=== PATIENT | female | born 1985 | race Hispanic/Latino ===

== ENCOUNTER 2019-02-19 18:44 | Emergency (ER) | payer SELFPAY ==
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
[2019-02-19] MEDS ORDERED: ACETAMINOPHEN 325 MG TABLET ONE (21:12)
== END 2019-02-19 21:20 | disposition home or self-care (01) ==
LOC: ER 18:44
DX: S29.012A Strain of muscle and tendon of back wall of thorax, initial encounter (principal); V49.40XA Driver injured in collision with unspecified motor vehicles in traffic accident, initial encounter; Y92.414 Local residential or business street as the place of occurrence of the external cause; M54.2 Cervicalgia; R07.9 Chest pain, unspecified
CPT/HCPCS: 71045; 99284

== ENCOUNTER 2024-03-22 07:54 | Emergency (ER) | payer SELFPAY ==
--- OUTSIDE RECORDS SUMMARY | 2024-03-22 08:01 | XMS REPORT | Continuity of Care Document ---
Author Name Unknown Address [address] [facility] [address] [place] [address] [facility] Address [address] [facility] [address] [place] [address] Care Team Providers Care Day Trader Name Role Phone KANDICE DAVALOS Attending Clinician UnavailKandice Reilly Attending Clinician + [phone] Visit, Kellifrieda Nurse Attending Clinician Unava ilable Doctor Unassigned, Merom Attending Clinician U navailable Timoteo Israel MD, Larissa Attending Clinician + LARISSA SMYTH Attending Clinician Unav ailable Ultrasound, Eveliahector Attending Clinician UnavailJuan Diego Lazo Attending Clinician [phone] Timoteo Israel MD, Larissa Admitting Clinician + LARISSA SMYTH Admitting Clinician Unav ailable Payers Payer Name Policy Type Policy Number Effective Date Expirati on Date Source [facility] MOM CHIP AMIE [id number] FPL [id number] 2019 00:00:00 Problems Condition Name Condition Details Condition Category Status Onset Date Resolution Date Last Treatment Date Treating Clinician Comments Source care and examinatio n immediatel y after delivery care and examinatio n immediatel y after delivery Disease Active 2-24 00:00: 00 [facility] 39 weeks gestation of 39 weeks gestation of Disease Active 2-02 00:00: 00 [facility] Herpes simplex type 2 infection affecting , antepartum , third trimester Herpes simplex type 2 infection affecting , antepartum , third trimester Disease Active 2018-1118 00:00: 00 [facility] 29 weeks gestation of 29 weeks gestation of Disease Active 2018-11 00:00: 00 [facility] Round ligament pain Round ligament pain Disease Active 2018-11 00:00: 00 [facility] Flu vaccine need Flu vaccine need Disease Active 2018-11 1-20 00:00: 00 [facility] Pedal edema Pedal edema Disease Active 9-11 00:00: 00 [facility] Obesity in Obesity in Disease Active 8-13 00:00: 00 [facility] Morbid obesity Morbid obesity Disease Active 8-13 00:00: 00 [facility] High risk , antepartum High risk , antepartum Disease Active 8-13 00:00: 00 [facility] Previous delivery affecting , antepartum Previous delivery affecting , antepartum Disease Active 8-13 00:00: 00 [facility] Multiparit y Multiparit y Disease Active 8-13 00:00: 00 [facility] GBS (group B Streptococ cus carrier), +RV culture, 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), +RV culture, currently Disease Active 6- 00:00: 00 [facility] Tdap given 04/27/2013 Tdap given 04/27/2013 Disease Active 6 00:00: 00 [facility] Allergies, Adverse Reactions, Alerts Allergy Name Allergy Type Status Severity Reaction(s) Onset Date Inactive Date Treating Clinician Comments Source NO KNOWN ALLERGIE S Drug Class Active [facility] Social History Social Habit Start Date Stop Date Quantity Comments Source ASSERTION 2019-04-03 00:00:00 [facility] Sex Assigned At [facility] Alcohol intake 2020-01-10 00:00:00 2020-01-10 00:00:00 [facility] Smoking Status Start Date Stop Date Source Never smoker [facility] Medications Ordered Medication Name Filled Medication Name Start Date Stop Date Current Medication? Ordering Clinician Indication Dosage Frequency Signature (SIG) Comments Components Source vit/iron fum/folic ac ( 1 + 1 ORAL) 12-20 12:29: 35 12-20 00:00 :00 No Take by mouth. [facility] ceFAZolin in dextrose (iso-os) (ANCEF) 2 gram/100 mL Piggyback 2 g 12-20 04:00: 00 12-20 20:13 :00 No 2000mg 2 g (2,000 mg), IV Piggyback, Q8H ABX, 3 doses, First dose on Fri12/19/19 at 2200, Last dose on 12/20/19 at 1400, 100 mL
Reas on for Anti-Infec tive: Surgical Prophylaxi s
Surgi rosalee Prophylaxi s: CABIN EQUIPMENT SUPERVISOR
Duration of therapy: within 24 hours of surgery [facility] vitamin w/FA tablet 12-20 00:00: 00 Yes [id number] 1{tbl} Take 1 tablet by mouth daily. [facility] docusate calcium 240 mg capsule 12-20 00:00: 00 Yes [id number] 240mg Take 1 capsule by mouth once daily as needed for Constipati on. [facility] ferrous sulfate 325 mg (65 mg iron) tablet 12-20 00:00: 00 Yes [id number] 325mg Take 1 tablet by mouth 2 (two) times daily. [facility] ibuprofen 600 mg tablet 12-20 00:00: 00 Yes [id number] 600mg Take 1 tablet by mouth every 6 (six) hours as needed (Pain). Take with food or milk. [facility] HYDROcodone -acetaminop hen 5-325 mg tablet 12-20 00:00: 00 12-28 05:59 :00 No [id number] 1{tbl} Take 1 tablet by mouth every 6 (six) hours as needed (Pain scale above 4) for up to 7 days. Do not exceed 3 grams of acetaminop hen in 24 hours. [facility] rho(D) immune globulin (RHOGAM) syringe 300 mcg 12-19 23:32: 10 Yes 300ug 300 mcg, Intramuscu lar, ONCE, For 1 dose, Conditiona l, Routine [facility] HYDROcodone -acetaminop hen (NORCO 5) 5-325 mg tablet 2 tablet 12-19 23:32: 05 Yes 2{tbl} 2 tablet, Oral, Q6HPRN, Starting 12/19/19 at 1732, Until Discontinu ed, Routine, Pain (scale 7-10), If uncontroll ed by Ibuprofen [facility] HYDROcodone -acetaminop hen (NORCO 5) 5-325 mg tablet 1 tablet 12-19 23:32: 05 Yes 1{tbl} 1 tablet, Oral, Q6HPRN, Starting 12/19/19 at 1732, Until Discontinu ed, Routine, Pain (scale 4-6), If uncontroll ed by Ibuprofen [facility] ibuprofen (IBU) tablet 600 mg 12-19 23:32: 05 Yes 600mg 600 mg, Oral, Q6HPRN, Starting 12/19/19 at 1732, Until Discontinu ed, Routine, Pain (scale 1-3) [facility] ondansetron (ZOFRAN (PF)) injection 4 mg 12-19 23:32: 05 Yes 4mg 4 mg, Slow IV Push, Q8HPRN, Starting 12/19/19 at 1732, Until Discontinu ed, Routine, Nausea and Vomiting (N/V) [facility] simethicone (GAS RELIEF (SIMETHICON E)) chewable tablet 160 mg 12-19 23:32: 05 Yes 160mg 160 mg, Oral, PC+HSPRN, Starting 12/19/19 at 1732, Until Discontinu ed, Routine, Gas [facility] magnesium hydroxide (MILK OF MAGNESIA) 400 mg/5 mL suspension 30 mL 12-19 23:32: 05 Yes 30mL 30 mL, Oral, QDAILYPRN, Starting 12/19/19 at 1732, Until Discontinu ed, Routine, Constipati on [facility] diphenhydrA MINE (BENADRYL) tablet 25 mg 12-19 23:32: 04 Yes 25mg 25 mg, Oral, Q6HPRN, Starting 12/19/19 at 1732, Until Discontinu ed, Routine, Sleep, Itching [facility] bisacodyL (DULCOLAX) suppository 10 mg 12-19 23:32: 04 Yes 10mg 10 mg, Rectal, QDAILYPRN, Starting 12/19/19 at 1732, Until Discontinu ed, Routine, Constipati on [facility] docusate calcium (SURFAK) capsule 240 mg 12-19 23:32: 04 Yes 240mg 240 mg, Oral, QDAILYPRN, Starting 12/19/19 at 1732, Until Discontinu ed, Routine, Constipati on [facility] ketorolac (TORADOL) injection 30 mg 12-19 21:33: 17 12-19 21:44 :00 No 30mg 30 mg, Slow IV Push, PRN, 1 dose, Starting 12/19/19 at 1533, Until 12/19/19 at 1544, Routine, Pain (scale 7-10)
F aculty member approving Restricted medication : NALINI LUBIN [facility] nalbuphine (NUBAIN) injection 5 mg 12-19 21:32: 43 Yes 5mg 5 mg, Intravenou s, PRN, 1 dose, Starting 12/19/19 at 1532, Until Discontinu ed, Routine, Itching [facility] naloxone (NARCAN) injection 0.4 mg 12-19 21:32: 43 12-22 00:14 :19 No .4mg 0.4 mg, Slow IV Push, PRN - SEE INSTRUCTZAKIYA NS, Starting 12/19/19 at 1532, Until Tu12/21/19 at 1814, Routine, Analgesia Recovery [facility] acetaminoph en (TYLENOL) tablet 650 mg 12-19 18:00: 00 12-19 18:07 :00 No 650mg 650 mg, Oral, ONCE, 1 dose, 2/2/20 at 1200, Routine [facility] lactated ringers IV infusion 1,000 mL 12-19 18:00: 00 12-19 23:32 :10 No 1000mL at 125 mL/hr, 1,000 mL, IV Infusion, CONTINUOUS , Starting 12/19/19 at 1200, Until Sun 220 at 1732, Routine [facility] lactated ringers IV infusion 500 mL 12-19 18:00: 00 12-19 18:06 :00 No 500mL at 999 mL/hr, 500 mL, IV Infusion, ONCE, 1 dose, 12/19/19 at 1200, Routine [facility] ceFAZolin in dextrose (iso-os) (ANCEF) 2 gram/100 mL Piggyback 2 g 12-19 17:50: 35 12-19 19:01 :00 No 2000mg 2 g (2,000 mg), IV Piggyback, O.R. HOLDING ONCE, 1 dose, Starting 12/19/19 at 1150, Until Sun 2 at 1301, 100 mL
Reas on for Anti-Infec tive: Surgical Prophylaxi s
Surgi rosalee Prophylaxi s: CABIN EQUIPMENT SUPERVISOR
Duration of therapy: within 24 hours of surgery [facility] sodium citrate-cit brayan acid (BICITRA) 500-334 mg/5 mL solution 30 mL 12-19 17:50: 35 12-19 19:02 :00 No 30mL 30 mL, Oral, PRE-PROCED URE ONCE, 1 dose, Starting 12/19/19 at 1150, Until Sun 220 at 1302, Routine, Surgery/Pr ocedure [facility] valACYclovi r (VALTREX) 500 mg tablet 12-08 00:00: 00 Yes [id number] 500mg Take 1 tablet by mouth daily. [facility] vit/iron fum/folic ac ( 1 + 1 ORAL) 2018-11 01:28: 36 Yes Take by mouth. [facility] vit/iron fum/folic ac ( 1 + 1 ORAL) 2019-0 8-13 18:25: 05 Yes Take by mouth. [facility] vit 33-iron-fol ic-dha (SELECT-OB + DHA) 29 mg iron-1 mg -250 mg combo pack 8-13 00:00: 00 12-20 00:00 :00 No [id number] 1{packe t} Take 1 Packet by mouth daily. [facility] Vital Signs Vital Name Observation Time Observation Value Comments S bayron Systolic blood pressure 2020-01-10 17:05:00 130 mm[Hg] [facility] Diastolic blood pressure 2020-01-10 17:05:00 80 mm[Hg] [facility] Heart rate 2020-01-10 17:05:00 79 /min [facility] Body temperature 2020-01-10 17:05:00 36.5 Yane [facility] Respiratory rate 2020-01-10 17:05:00 16 /min [facility] Body height 2020-01-10 17:05:00 162.6 cm [facility] Body weight 2020-01-10 17:05:00 134.038 kg [facility] BMI 2020-01-10 17:05:00 50.72 kg/m2 [facility] Systolic blood pressure 2019-12-27 15:15:00 132 mm[Hg] [facility] Diastolic blood pressure 2019-12-27 15:15:00 80 mm[Hg] [facility] Heart rate 2019-12-27 15:09:00 74 /min Unive [facility] Body temperature 2019-12-27 15:09:00 36.78 Yane [facility] Respiratory rate 2019-12-27 15:09:00 16 /min [facility] Body height 2019-12-27 15:09:00 162.6 cm [facility] Body weight 2019-12-27 15:09:00 137.525 kg [facility] BMI 2019-12-27 15:09:00 52.04 kg/m2 [facility] Systolic blood pressure 2019-12-24 17:10:00 123 mm[Hg] [facility] Diastolic blood pressure 2019-12-24 17:10:00 78 mm[Hg] [facility] Heart rate 2019-12-24 17:10:00 71 /min Unive [facility] Body temperature 2019-12-24 17:10:00 36.72 Yane [facility] Respiratory rate 2019-12-24 17:10:00 16 /min [facility] Body height 2019-12-24 17:10:[address] [facility] Body weight 2019-12-24 17:10:00 141.579 kg [facility] BMI 2019-12-24 17:10:00 53.58 kg/m2 [facility] Systolic blood pressure 2019-12-21 14:00:00 134 mm[Hg] [facility] Diastolic blood pressure 2019-12-21 14:00:00 68 mm[Hg] [facility] Heart rate 2019-12-21 14:00:00 79 /min Unive [facility] Body temperature 2019-12-21 14:00:00 36.33 Yane [facility] Respiratory rate 2019-12-21 14:00:00 18 /min [facility] Oxygen saturation in Arterial blood by Pulse oximetry 2019-12-21 14:00:00 97 /min [facility] Body height 2019-12-19 17:37:00 157.5 cm [facility] Body weight 2019-12-19 17:37:00 138.12 kg [facility] BMI 2019-12-19 17:37:00 55.69 kg/m2 [facility] Systolic blood pressure 2019-12-15 16:07:00 138 mm[Hg] [facility] Diastolic blood pressure 2019-12-15 16:07:00 74 mm[Hg] [facility] Heart rate 2019-12-15 16:07:00 97 /min Unive [facility] Body temperature 2019-12-15 16:07:00 36.11 Yane [facility] Respiratory rate 2019-12-15 16:07:00 16 /min [facility] Body height 2019-12-15 16:07:00 157.5 cm [facility] Body weight 2019-12-15 16:07:[address] [facility] BMI 2019-12-15 16:07:00 55.97 kg/m2 [facility] Systolic blood pressure 2019-12-08 15:34:00 110 mm[Hg] [facility] Diastolic blood pressure 2019-12-08 15:34:00 62 mm[Hg] [facility] Heart rate 2019-12-08 15:02:00 84 /min Unive [facility] Body temperature 2019-12-08 15:02:00 36.33 Yane [facility] Respiratory rate 2019-12-08 15:02:00 16 /min [facility] Body height 2019-12-08 15:02:00 157.5 cm [facility] Body weight 2019-12-08 15:02:[address] [facility] BMI 2019-12-08 15:02:00 56.88 kg/m2 [facility] Body weight 2019-12-01 16:10:[address] [facility] BMI 2019-12-01 16:10:00 56.17 kg/m2 [facility] Systolic blood pressure 2019-12-01 16:10:00 115 mm[Hg] [facility] Diastolic blood pressure 2019-12-01 16:10:00 70 mm[Hg] [facility] Heart rate 2019-12-01 16:10:00 78 [facility] Body temperature 2019-12-01 16:10:00 36.67 Yane [facility] Respiratory rate 2019-12-01 16:10:00 16 /min [facility] Body height 2019-12-01 16:10:[address] [facility] Systolic blood pressure 2019-07-28 15:15:00 113 mm[Hg] [facility] Diastolic blood pressure 2019-07-28 15:15:00 69 mm[Hg] [facility] Heart rate 2019-07-28 15:15:00 79 /min Unive [facility] Body temperature 2019-07-28 15:15:00 37.06 Yane [facility] Respiratory rate 2019-07-28 15:15:00 18 /min [facility] Body height 2019-07-28 15:15:00 157.5 cm [facility] Body weight 2019-07-28 15:15:00 137.922 kg [facility] BMI 2019-07-28 15:15:00 55.61 kg/m2 [facility] Systolic blood pressure 2019-06-29 18:21:00 126 mm[Hg] [facility] Diastolic blood pressure 2019-06-29 18:21:00 77 mm[Hg] [facility] Heart rate 2019-06-29 18:21:00 96 /min [facility] Body temperature 2019-06-29 18:21:00 36.72 Yane [facility] Respiratory rate 2019-06-29 18:21:00 16 /min [facility] Body height 2019-06-29 18:21:00 157.5 cm [facility] Body weight 2019-06-29 18:21:00 136.589 kg [facility] BMI 2019-06-29 18:21:00 55.08 kg/m2 [facility] Procedures Procedure Date / Time Performed Performing Clinician Source PATIENT CORRESPONDENCE (LETTERS, USPS DOCUMENTATION) 2019-12-24 06:01:00 Doctor Unassigned, Merom [facility] CBC WITH DIFFERENTIAL 2019-12-20 08:20:00 Tamara Jameson [facility] VENOUS CORD GAS 2019-12-19 19:51:[facility] 2019-12-19 18:54:00 Timoteo larios [facility] TUBAL LIGATION 2019-12-19 18:54:00 Timoteo fernandez [facility] CBC WITH DIFFERENTIAL 2019-12-19 18:02:00 Tamara Jameson [facility] HEPATITIS B SURFACE ANTIGEN 2019-12-19 18:02:00 G[facility] GALV ONLY - SYPHILIS IGG/IGM 2019-12-19 18:02:00 Abby Jameson [facility] HB ABO GROUPING 2019-12-19 17:55:00 Abby Jameson [facility] RHO (D) IMMUNE GLOBULIN 2019-12-19 17:55:00 Yolanda Jameson [facility] POCT URINALYSIS 2019-12-15 16:08:00 Kandice Davalos [facility] POCT URINALYSIS 2019-12-08 15:13:00 Kandice Davalos [facility] POCT TEST 2019-12-01 16:36:00 Abena Davalos [facility] POCT URINALYSIS W/O SPECIFIC GRAVITY 2019-12-01 16:15:00 Kandice Davalos [facility] IMMTRAC2 CONSENT 2019-09-22 06:01:00 Doctor Melania signed, Merom [facility] POCT URINALYSIS 2019-07-28 15:19:00 Kandice Davalos [facility] POCT TEST 2019-06-29 18:26:00 Abena Davalos [facility] POCT URINALYSIS W/O SPECIFIC GRAVITY 2019-06-29 18:26:00 Kandice Davalos [facility] REPORT OF 2019-06-29 05:01:00 Doctor Heidi sanders, Merom [facility] Encounters Start Date/Time End Date/Time Encounter Type Admission Type Attending [facility] Facility Care Department Encounter ID Source 2023-09-01 14:48:01 2023-09-01 14:48:[address] [facility] [id number] Charles Reddy 2022-08-26 10:14:47 2022-08-26 10:14:47 Outpatient SFA [facility] [id number] Charles Reddy 2020-02-02 10:15:00 2020-02-02 10:15:00 Outpatient R KANDICE DAVALOS [facility] [id number] [facility] 2020-01-10 10:39:22 2020-01-10 11:25:50 Routine Visit Kandice Davalos [facility] CABIN EQUIPMENT SUPERVISOR [facility] [id number] [id number] [id number] [id number] [facility] 2020-01-10 10:45:00 2020-01-10 10:45:00 Outpatient R KANDICE DAVALOS [facility] [id number] [facility] 2019-12-27 08:56:58 2019-12-27 09:11:58 [facility] SUPERVISOR [facility] [id number] 350.1.13.10 4.2.7.2.686 [id number] [facility] 2019-12-24 10:44:14 2019-12-24 11:21:11 Nurse Visit Visit, [facility] [id number] 350.1.13.10 4.2.7.2.686 [id number] [facility] 2019-12-24 00:00:00 2019-12-24 00:00:00 Orders Only Doctor Unassigned, Merom [facility] [id number] 350.1.13.10 4.2.7.2.686 [id number] [facility] 2019-12-19 11:10:00 2019-12-21 10:28:00 Hospital Encounter Larissa Mcgee [facility] [id number] 350.1.13.10 4.2.7.2.686 [id number] [facility] 2019-12-19 11:10:00 2019-12-21 10:28:00 Inpatient P LARISSA MCGEE [facility] [id number] [facility] 2019-12-15 10:02:24 2019-12-15 10:28:30 Routine Visit Kandice Davalos [facility] CABIN EQUIPMENT SUPERVISOR [facility] [id number] 350.1.13.10 4.2.7.2.686 [id number] [facility] 2019-12-08 08:31:15 2019-12-08 09:36:38 Routine Visit Kandice Davalos [facility] CABIN EQUIPMENT SUPERVISOR [facility] CHILD [facility] [id number] 350.1.13.10 4.2.7.2.686 [id number] [facility] 2019-12-01 09:52:57 2019-12-01 10:36:43 Routine Visit Kandice Davalos [facility] CABIN EQUIPMENT SUPERVISOR [facility] CHILD [facility] [id number] 350.1.13.10 4.2.7.2.686 [id number] [facility] 2019-07-28 10:08:18 2019-07-28 10:47:38 Routine Visit Kandice Davalos [facility] CABIN EQUIPMENT SUPERVISOR [facility] CHILD [facility] [id number] 350.1.13.10 4.2.7.2.686 [id number] [facility] 2019-07-01 09:12:43 2019-07-01 09:47:52 Psychiatric Assistant Visit Ultrasound, Juan Diego Wiley [facility] CABIN EQUIPMENT SUPERVISOR [facility] [id number] 350.1.13.10 4.2.7.2.686 [id number] [facility] 2019-07-01 00:00:00 2019-07-01 00:00:00 Abstract Kandice Davalos [facility] CABIN EQUIPMENT SUPERVISOR [facility] MATERNAL & CHILD [facility] [id number] 350.1.13.10 4.2.7.2.686 [id number] [facility] 2019-06-29 13:07:33 2019-06-29 14:12:08 Initial Visit Veronica Davalosa R [facility] CABIN EQUIPMENT SUPERVISOR [facility] [id number] 350.1.13.10 4.2.7.2.686 [id number] [facility] 2019-06-29 00:00:00 2019-06-29 00:00:00 Orders Only Doctor Unassigned, Merom [facility] [id number] 350.1.13.10 4.2.7.2.686 [id number] [facility] Results Test Description Test Time Test Comments Results Result Co mments Source VAGINAL PATHOGENS DNA [id number] 15:37:00* Test Item Value Reference Range Interpretation Comme nts CHARLIE SPECIES (test code = 28170) NEGATIVE NEGATIVE G. VAGINALIS (test code = 88907) NEGATIVE NEGATIVE T. VAGINALIS (test code = 44585) NEGATIVE NEGATIVE UNLESS OTHERWISE INDICATED, ALL TESTING PERFORMED ATCLINICAL PATHOLOGY [employer] [address] [place] [address] MEAT BONER: WILLIAM OSBORNE M.D. CLIA NUMBER [id number] [facility] [place]. [id number] GALV ONLY - SYPHILIS [id number] 14:17:00* Test Item Value Reference Range Interpretation Comme nts Syphilis IgG/IgM (test code = 75065-4) Non-reactive Non-reactive KEHINDE (test code = KEHINDE) Non-reactive - No serologic evidence of T. pallidum infection. Cannot exclude incubating or early syphilis. Submit a second specimen in 2-4 weeks if syphilis is clinically suspected. Equivocal - Further testing to follow. Reactive - Further testing to follow. Lab Interpretation (test code = 78765-9) [facility] [id number] 09:06:00* Test Item Value Reference Range Interpretation Comme nts WBC (test code = 6690-2) See_Comment [Automated messa ge] The system which generated this result transmitted reference range: 4.30 - 11.10 10*3/?L. The reference range was not used to interpret this result as normal/abnormal. RBC (test code = 789-8) See_Comment L [Automated messa ge] The system which generated this result transmitted reference range: 3.93 - 5.25 10*6/?L. The reference range was not used to interpret this result as normal/abnormal. HGB (test code = 718-7) 10.3 g/dL 11.6-15 L HCT (test code = 4544-3) 31.8 % 35.7-45.2 L MCV (test code = 787-2) 85.9 fL 80.6-95.5 MCH (test code = 785-6) 27.8 pg 25.9-32.8 MCHC (test code = 786-4) 32.4 g/dL 31.6-35.1 RDW-SD (test code = 78740-5) 49.6 fL 39-49.9 RDW-CV (test code = 788-0) 16.0 % 12-15.5 H PLT (test code = 777-3) See_Comment L [Automated messa ge] The system which generated this result transmitted reference range: 166 - 358 10*3/?L. The reference range was not used to interpret this result as normal/abnormal. MPV (test code = 13009-7) 11.2 fL 9.5-12.9 NRBC/100 WBC (test code = 1017406867) See_Comment [Automated [employer] ssage] The system which generated this result transmitted reference range: 0.0 - 10.0 /100 WBCs. The reference range was not used to interpret this result as normal/abnormal. NRBC x10^3 (test code = 8749009545) <0.01 See_Comment [Automated messa ge] The system which generated this result transmitted reference range: 10*3/?L. The reference range was not used to interpret this result as normal/abnormal. GRAN MAT (NEUT) % (test code = 770-8) 78.8 % IMM GRAN % (test code = 9745467925) 0.40 % LYMPH % (test code = 736-9) 13.8 % MONO % (test code = 5905-5) 6.4 % EOS % (test code = 713-8) 0.5 % BASO % (test code = 706-2) 0.1 % GRAN MAT x10^3(ANC) (test code = 1534529316) 7.22 10*3/uL 1.88-7.09 H IMM GRAN x10^3 (test code = 2979668205) 0.04 10*3/uL 0-0.06 LYMPH x10^3 (test code = 731-0) 1.27 10*3/uL 1.32-3.29 L MONO x10^3 (test code = 742-7) 0.59 10*3/uL 0.33-0.92 EOS x10^3 (test code = 711-2) 0.05 10*3/uL 0.03-0.39 BASO x10^3 (test code = 704-7) <0.03 0.01-0.07 Lab Interpretation (test code = 76254-4) [facility]normal [facility] IMMUNE [id number] 23:43:56* Test Item Value Reference Range Interpretation Comme nts RHIG CANDIDATE? (test code = 5055) No- see comment Patient is not a candidate for RhIg- Patient is Rh Positive.Performed at [facility] Laboratory Services - [facility] Blood [address] [id number] Free: [phone] No. [id number] [facility] HospitalArterial Cord [id number] 20:01:00* Test Item Value Reference Range Interpretation Comme nts BASE EXCESS, CORD (test code = 6111230614) mEq/L AC PH, CORD (BEAKER) (test code = 2619369035) 7.18-7.38 PC02, CORD (test code = 0913109085) See_Comment [Automated messa ge] The system which generated this result transmitted reference range: 32 - 66 mmHg. The reference range was not used to interpret this result as normal/abnormal. PO2, CORD (test code = 3086525706) See_Comment [Automated messa ge] The system which generated this result transmitted reference range: 10 - 30 mmHg. The reference range was not used to interpret this result as normal/abnormal. BICARBONATE, CORD (test code = 9830806363) See_Comment [Automated messa ge] The system which generated this result transmitted reference range: 17 - 27 mEq/L. The reference range was not used to interpret this result as normal/abnormal. [facility] [id number] 19:58:00* Test Item Value Reference Range Interpretation Comme nts VENOUS BASE EXCESS, CORD (test code = 7584356365) mEq/L VENOUS PH, CORD (test code = 9875499711) 7.25-7.45 L VENOUS PC02, CORD (test code = 6111760412) See_Comment H [Automated me ssage] The system which generated this result transmitted reference range: 27 - 49 mmHg. The reference range was not used to interpret this result as normal/abnormal. VENOUS PO2, CORD (test code = 4882169381) See_Comment L [Automated me ssage] The system which generated this result transmitted reference range: 17 - 41 mmHg. The reference range was not used to interpret this result as normal/abnormal. VENOUS BICARBONATE, CORD (test code = 2810620526) See_Comment [Automa adam message] The system which generated this result transmitted reference range: 12 - 29 mEq/L. The reference range was not used to interpret this result as normal/abnormal. Lab Interpretation (test code = 68902-5) Abnormal [facility] HospitalHepatitis B Surface [id number] 19:56:00 * Test Item Value Reference Range Interpretation Comme nts HBsAg Semi-Quantitative (fadi t code = 5195-3) Negative Negative [facility] HospitalType and Screen - ONCE [id number] 18:44:46* Test Item Value Reference Range Interpretation Comme nts ABO & RH (test code = 20) O POSITIVE Performed at [facility] Laboratory Services - [facility] Blood [address] Free: [phone] No. [id number] IAT (test code = 1185) Negative Performed at [facility] Laboratory Services - [facility] Blood [address] Free: [phone] No. [id number] [facility] HospitalCBC WITH [id number] 18:15:00* Test Item Value Reference Range Interpretation Comme nts WBC (test code = 6690-2) See_Comment H [Automated message] The system which generated this result transmitted reference range: 4.30 - 11.10 10*3/?L. The reference range was not used to interpret this result as normal/abnormal. RBC (test code = 789-8) See_Comment [Automated message] The system which generated this result transmitted reference range: 3.93 - 5.25 10*6/?L. The reference range was not used to interpret this result as normal/abnormal. HGB (test code = 718-7) 13.0 g/dL 11.6-15 HCT (test code = 4544-3) 40.0 % 35.7-45.2 MCV (test code = 787-2) 84.6 fL 80.6-95.5 MCH (test code = 785-6) 27.5 pg 25.9-32.8 MCHC (test code = 786-4) 32.5 g/dL 31.6-35.1 RDW-SD (test code = 69836-8) 47.6 fL 39-49.9 RDW-CV (test code = 788-0) 15.6 % 12-15.5 H PLT (test code = 777-3) See_Comment [Automated message] The system which generated this result transmitted reference range: 166 - 358 10*3/?L. The reference range was not used to interpret this result as normal/abnormal. MPV (test code = 07383-8) 11.6 fL 9.5-12.9 NRBC/100 WBC (test code = 1731330183) See_Comment [Automated message] The system which generated this result transmitted reference range: 0.0 - 10.0 /100 WBCs. The reference range was not used to interpret this result as normal/abnormal. NRBC x10^3 (test code = 7516781579) <0.01 See_Comment [Automated message] The system which generated this result transmitted reference range: 10*3/?L. The reference range was not used to interpret this result as normal/abnormal. GRAN MAT (NEUT) % (test code = 770-8) 83.7 % IMM GRAN % (test code = 4784100697) 0.30 % LYMPH % (test code = 736-9) 11.2 % MONO % (test code = 5905-5) 4.4 % EOS % (test code = 713-8) 0.2 % BASO % (test code = 706-2) 0.2 % GRAN MAT x10^3(ANC) (test code = 5430844820) 10.23 10*3/uL 1.88-7.09 H IMM GRAN x10^3 (test code = 9837182965) 0.04 10*3/uL 0-0.06 LYMPH x10^3 (test code = 731-0) 1.37 10*3/uL 1.32-3.29 MONO x10^3 (test code = 742-7) 0.54 10*3/uL 0.33-0.92 EOS x10^3 (test code = 711-2) 0.03 10*3/uL 0.03-0.39 BASO x10^3 (test code = 704-7) 0.03 10*3/uL 0.01-0.07 Lab Interpretation (test code = 85832-2) Abnormal [facility] URINALYSIS W SPECIFIC [id number] 16:11:00* Test Item Value Reference Range Interpretation Comme nts POCT U SP GRAV (test code = 3255) . 1.005-1.025 POCT PH U (test code = 3254) . 5-8 POCT U LEUK EST (test code = 3263) . Negative - Negative POCT U NIT (test code = 3262) . Negative - Negati ve POCT U PROT (test code = 3259) 1+ Negative - Negat saba POCT U GLU (test code = 3256) neg Negative - Negati ve POCT U KETONE (test code = 3258) . Negative - Neg ative POCT U UROBILI (test code = 3260) . 0.2-1 POCT U BILI (test code = 3261) . Negative - Negat saba POCT U BLD (test code = 3257) . Negative - Negati ve POCT U COLOR (test code = 3266) POCT U APPEAR (test code = 3267) Lab Interpretation (test cod e = 00927-8) Abnormal [facility] URINALYSIS W SPECIFIC [id number] 16:11:00* Test Item Value Reference Range Interpretation Comme nts POCT U SP GRAV (test code = 3255) . 1.005-1.025 POCT PH U (test code = 3254) . 5-8 POCT U LEUK EST (test code = 3263) . Negative - Negative POCT U NIT (test code = 3262) . Negative - Negati ve POCT U PROT (test code = 3259) 1+ Negative - Negat saba POCT U GLU (test code = 3256) neg Negative - Negati ve POCT U KETONE (test code = 3258) . Negative - Neg ative POCT U UROBILI (test code = 3260) . 0.2-1 POCT U BILI (test code = 3261) . Negative - Negat saba POCT U BLD (test code = 3257) . Negative - Negati ve POCT U COLOR (test code = 3266) POCT U APPEAR (test code = 3267) Lab Interpretation (test cod e = 63469-8) Abnormal [facility] URINALYSIS W SPECIFIC [id number] 15:13:00* Test Item Value Reference Range Interpretation Comme nts POCT U SP GRAV (test code = 3255) . 1.005-1.025 POCT PH U (test code = 3254) . 5-8 POCT U LEUK EST (test code = 3263) . Negative - Negative POCT U NIT (test code = 3262) . Negative - Negati ve POCT U PROT (test code = 3259) trace Negative - Negat saba POCT U GLU (test code = 3256) negative Negative - Negati ve POCT U KETONE (test code = 3258) . Negative - Neg ative POCT U UROBILI (test code = 3260) . 0.2-1 POCT U BILI (test code = 3261) . Negative - Negat saba POCT U BLD (test code = 3257) . Negative - Negati ve POCT U COLOR (test code = 3266) POCT U APPEAR (test code = 3267) [facility] [id number] 16:37:00* Test Item Value Reference Range Interpretation Comme nts POCT PREG (test code = 1605) Positive error On board controls acceptable with C Line (test code = 357) Yes POCT PREG LOT # (test code = 7854) POCT PREG TEST DATE ( test code = 3576) [facility] [id number] 16:37:00* Test Item Value Reference Range Interpretation Comme nts POCT PREG (test code = 1605) Positive error On board controls acceptable with C Line (test code = 3574) Yes POCT PREG LOT # (test code = 3575) POCT PREG TEST DATE ( test code = 3576) [facility] URINALYSIS W/O SPECIFIC [id number] 16:15:00* Test Item Value Reference Range Interpretation Comme nts POCT PH U (test code = 3254) 6 mg/dl 5-8 POCT U LEUK EST (test code = 3263) trace Negative - Negative POCT U NIT (test code = 3262) neg Negative - Negati ve POCT U PROT (test code = 3259) trace Negative - Negat saba POCT U GLU (test code = 3256) neg Negative - Negati ve POCT U KETONE (test code = 3258) + Negative - Neg ative POCT U BLD (test code = 3257) neg Negative - Negati ve Lab Interpretation (test cod e = 42993-7) Abnormal [facility] URINALYSIS W/O SPECIFIC [id number] 16:15:00* Test Item Value Reference Range Interpretation Comme nts POCT PH U (test code = 3254) 6 mg/dl 5-8 POCT U LEUK EST (test code = 3263) trace Negative - Negative POCT U NIT (test code = 3262) neg Negative - Negati ve POCT U PROT (test code = 3259) trace Negative - Negat saba POCT U GLU (test code = 3256) neg Negative - Negati ve POCT U KETONE (test code = 3258) + Negative - Neg ative POCT U BLD (test code = 3257) neg Negative - Negati ve Lab Interpretation (test cod e = 60678-2) Abnormal [facility] URINALYSIS W SPECIFIC [id number] 15:19:00* Test Item Value Reference Range Interpretation Comme nts POCT U SP GRAV (test code = 3255) . 1.005-1.025 POCT PH U (test code = 3254) . 5-8 POCT U LEUK EST (test code = 3263) . Negative - N egative POCT U NIT (test code = 3262) . Negative - Negati ve POCT U PROT (test code = 3259) NEG Negative - Negat saba POCT U GLU (test code = 3256) NEG Negative - Negati ve POCT U KETONE (test code = 3258) . Negative - Neg ative POCT U UROBILI (test code = 3260) . 0.2-1 POCT U BILI (test code = 3261) . Negative - Negat saba POCT U BLD (test code = 3257) . Negative - Negati ve POCT U COLOR (test code = 3266) POCT U APPEAR (test code = 3267) [facility] HospitalPOID [id number] 18:26:00* Test Item Value Reference Range Interpretation Comme nts POCT PREG (test code = 1605) Positive On board controls acceptable with C Line (test code = 3574) Yes POCT PREG LOT # (test code = 3575) POCT PREG TEST DATE ( test code = 3576) [facility] URINALYSIS W/O SPECIFIC [id number] 18:26:00* Test Item Value Reference Range Interpretation Comme nts POCT PH U (test code = 3254) 5 mg/dl 5-8 POCT U LEUK EST (test code = 3263) Neg Negative - Negative POCT U NIT (test code = 3262) Neg Negative - Negati ve POCT U PROT (test code = 3259) Trace Negative - Negat saba POCT U GLU (test code = 3256) Neg Negative - Negati ve POCT U KETONE (test code = 3258) None Negative - Neg ative POCT U BLD (test code = 3257) Neg Negative - Negati ve [facility]
[2024-03-22] MEDS ORDERED: MORPHINE 4 MG/ML SYR ONE (08:30)
[2024-03-22] MEDS ORDERED: ONDANSETRON 4 MG/2 ML VIAL ONE (08:30)
[2024-03-22] MEDS ORDERED: NA CHLORIDE 0.9% 1,000 ML ONE (08:30)
[2024-03-22 08:37] LABS: Absolute Eosinophils 0.1 K/uL (0-0.5); Absolute Lymphocytes (CBC) 1.7 K/uL (0.7-4.9); Absolute Monocytes 0.6 K/uL (0.1-1.3); Absolute Neutrophil 5.4 K/uL (1.8-8.0); Basophils % 0.6 % (0-1.3); Eosinophils % 1.5 % (0-4.4); Hematocrit 36.1 % (36.0-45.0); Hemoglobin 11.8 g/dL (12.0-15.0); Lymphocytes % 21.9 % (15.3-44.8); MCH 27.2 pg (27.0-35.0); MCHC 32.8 g/dL (32.0-36.0); MPV 8.1 fL (7.6-11.3); Monocytes % 7.1 % (3.3-12.3); Neutrophils % 68.9 % (41.7-73.7); Platelets 262 thou/uL (152-406); RBC Red Blood Cell Count 4.34 M/uL (3.86-4.86); Red Cell Distribution Width 15.1 % (12.1-15.2)
[2024-03-22 09:06] LABS: Albumin/Globulin Ratio 0.8 (1.1-1.8); Anion Gap 8.1 mEq/L (5.0-15.0); Bilirubin Total 0.5 mg/dL (0.2-1.0); Potassium 4.1 mEq/L (3.5-5.1)
--- NOTE | 2024-03-22 09:19 | RAD REPORT ---
EXAM DESCRIPTION: CT - Abdomen Pelvis W Contrast - 03/22/2024 8:57 am CLINICAL HISTORY: Abdominal pain COMPARISON: none. TECHNIQUE: Computed axial tomography of the abdomen pelvis was obtained. 100 cc Isovue-300 was admin istered intravenously. Oral contrast was not requested which limits evaluation of bowel and appendix All CT scans are performed using dose optimization technique as appropriate and may include automated exposure control or mA/KV adjustment according to patient size. FINDINGS: The liver, spleen, pancreas, adrenal and kidneys appear unremarkable. There is no evidence of diverticulitis. A small umbilical hernia Normal appendix. No adnexal mass seen IMPRESSION: No acute abnormality is displayed.
[2024-03-22 09:30] LABS: Specific Gravity > 1.030 (1.005-1.030)
[2024-03-22 09:41] LABS: Specific Gravity > 1.030 (1.005-1.030); Urine Bacteria None Seen /HPF (<20); Urine Bilirubin NEGATIVE (Negative); Urine Blood Negative (Negative); Urine Clarity Turbid (Clear); Urine Color Light-Yellow (Yellow); Urine Culture Reflex Order NOT NEEDED; Urine Glucose NEGATIVE (Negative); Urine Ketones NEGATIVE (Negative); Urine Microscopic Reflex YN ORDER UMIC; Urine Mucus Slight /HPF (None Seen); Urine Nitrite NEGATIVE (Negative); Urine Protein TRACE (Negative); Urine RBC <5 /HPF (None Seen); Urine Urobilinogen Normal (Normal); Urine WBC <5 /HPF (<5); Urine pH 5.5 (5.0-7.0)
--- NOTE | 2024-03-22 09:45 | EDPHYS ---
Physician Documentation [facility] Name: Dorene Esquivel Age: 38 yrs Sex: Female : 1985 Arrival Date: 03/22/2024 Time: 07:54 Bed 8 Private MD: ED Physician Tavo Jack HPI: 03/22 08:11 This 38 yrs old Female presents to ER via Unassigned with complaints of sb4 Abdominal Pain. 08:11 The patient presents with abdominal pain in the lower abdomen. Onset: The sb4 symptoms/episode began/occurred this morning. The symptoms do not radiate. Associated signs and symptoms: none. The symptoms are described as burning. Modifying factors: The symptoms are alleviated by nothing, the symptoms are aggravated by nothing. The patient has not experienced similar symptoms in the past. The patient has not recently seen a physician. 08:14 diffuse lower abdominal pain beginning this morning, feels like a burning sensation. sb4 denies any n/v/d/f. took aleve without relief. Historical: - Allergies: 08:11 No Known Allergies; aa5 - PMHx: 08:11 None; aa5 - PSHx: 08:11 section; tubal ligation; aa5 - Immunization history:: Adult Immunizations up to date. - Infectious Disease History:: Denies. - Social history:: Smoking status: Patient denies any tobacco usage or history of. ROS: 08:11 Constitutional: Negative for fever, chills, and weight loss, sb4 08:11 Abdomen/GI: Positive for abdominal pain, 08:11 All other systems are negative, Exam: 08:11 Head/Face: Normocephalic, atraumatic. Eyes: Extra-ocular motions intact. Periorbital sb4 areas with no swelling, redness, or edema. ENT: Mucous membranes moist. Cardiovascular: Regular rate and rhythm with a normal S1 and S2. Respiratory: Lungs have equal breath sounds bilaterally, clear to auscultation and percussion. No rales, rhonchi or wheezes noted. No increased work of breathing, no retractions or nasal flaring. Abdomen/GI: Soft, non-tender, no distension. Skin: Warm, dry with normal turgor. Normal color with no rashes, no lesions, and no evidence of cellulitis. MS/ Extremity: Pulses equal, no cyanosis. Neurovascular intact. Full, normal range of motion. 08:11 Constitutional: The patient appears alert, awake, obese, uncomfortable, Vital Signs: 08:11 BP 122 / 90; Pulse 64; Resp 18 S; Temp 97.8(TE); Pulse Ox 100% on R/A; aa5 09:40 BP 125 / 88; Pulse 68; Resp 18; Pulse Ox 99% on R/A; rs5 MDM: 08:06 Patient medically screened. sb4 09:44 Data reviewed: vital signs, nurses notes, lab test result(s), radiologic studies, and sb4 as a result, I will discharge patient. Counseling: I had a detailed discussion with the patient and/or guardian regarding the historical points, exam findings, and any diagnostic results supporting the discharge/admit diagnosis, lab results, radiology results, to return to the emergency department if symptoms worsen or persist or if there are any questions or concerns that arise at home. Special discussion: Based on the patient's Hx, exam, and Dx evaluation, there is no indication for emergent surgery or inpatient Tx. It is understood by the patient/guardian that if the Sx's persist or worsen they need to return immediately for re-evaluation. 03/22 08:11 Order name: CBC with Diff; Complete Time: 08:39 sb4 03/22 08:11 Order name: CMP; Complete Time: 09:11 sb4 03/22 08:11 Order name: Lipase; Complete Time: 09:11 sb4 03/22 08:11 Order name: Test, Urine; Complete Time: 09:32 sb4 03/22 08:11 Order name: Urinalysis w/ reflexes; Complete Time: 09:41 sb4 03/22 08:11 Order name: CT Abd/Pelvis - IV Contrast Only; Complete Time: 09:21 sb4 03/22 08:11 Order name: IV Saline Lock; Complete Time: 08:25 sb4 03/22 08:11 Order name: Labs collected and sent; Complete Time: 08:25 sb4 Administered Medications: 08:30 Drug: NS 0.9% IV 1000 ml IV at 1 bolus Per protocol; 1000 mL bolus Route: IV; Rate: 1 rs5 bolus; Site: left antecubital; 08:45 Follow up: Response: No adverse reaction rs5 09:33 Follow up: IV Status: Completed infusion rs5 08:30 Drug: Ondansetron IVP 4 mg IVP once; over 2 minutes Route: IVP; Site: left antecubital; rs5 08:45 Follow up: Response: No adverse reaction rs5 08:30 Drug: morphine IVP or IV 4 mg IVP once over 4 mins Route: IVP; Infused Over: 4 mins; rs5 Site: left antecubital; 08:45 Follow up: Response: No adverse reaction rs5 Disposition Summary: 03/22/24 09:45 Discharge Ordered Notes: Location: Home sb4 Problem: new sb4 Symptoms: have improved sb4 Condition: Stable sb4 Diagnosis - Lower abdominal pain, unspecified sb4 Followup: sb4 - With: Emergency Department - When: As needed - Reason: Trouble breathing, Worsening of condition Discharge Instructions: - Discharge Summary Sheet sb4 - Abdominal Pain, Adult, Kafe-[id number]-Vyyy sb4 Forms: - Patient Portal Instructions sb4 - Leadership Thank You Letter sb4 Prescriptions: - dicyclomine 20 mg Oral tablet - take 1 tablet ORAL route 3 times per day As needed; 20 tablet; Refills: 0, sb4 Product Selection Permitted Signatures: Dispatcher [employer] EDJacinta Dailey, RN RN aa5 Melissa Sherman PAGertrudis PAGertrudis sb4 Holden Torres RN RN rs5 Corrections: (The following items were deleted from the chart) 08:11 08:11 CBC+H.LAB.BRZ ordered. EDMS EDMS 08:11 08:11 COMPREHENSIVE METABOLIC PANEL+C.LAB.BRZ ordered. EDMS EDMS 08:11 08:11 LIPASE+C.LAB.BRZ ordered. EDMS EDMS 08:11 08:11 Test, Urine+UC.LAB.BRZ ordered. EDMS EDMS 08:11 08:11 Urinalysis+U.LAB.BRZ ordered. EDMS EDMS
--- NOTE | 2024-03-22 09:45 | ER ---
Nurse's Notes [facility] Name: Dorene Esquivel Age: 38 yrs Sex: Female : 1985 Arrival Date: 03/22/2024 Time: 07:54 Bed 8 Private MD: Diagnosis: Lower abdominal pain, unspecified Presentation: 03/22 08:11 Chief complaint: Patient states: lower abdominal pain that began this morning, aa5 described as burning pain. Denies nausea/vomiting. Coronavirus screen: At this time, the client does not indicate any symptoms associated with coronavirus-19. Ebola Screen: Patient denies travel to an Ebola-affected area in the 21 days before illness onset. Initial Sepsis Screen: Does the patient meet any 2 criteria? No. Patient's initial sepsis screen is negative. Does the patient have a suspected source of infection? No. Patient's initial sepsis screen is negative. Risk Assessment: Do you want to hurt yourself or someone else? Patient reports no desire to harm self or others. Onset of symptoms was March 22, 2024. 08:11 Acuity: ARY 3 aa5 08:11 Method Of Arrival: Ambulatory aa5 Triage Assessment: 08:06 General: Appears uncomfortable, Behavior is cooperative. Respiratory: Airway is patent rs5 Respiratory effort is even, unlabored, Respiratory pattern is regular, symmetrical. Historical: - Allergies: 08:11 No Known Allergies; aa5 - PMHx: 08:11 None; aa5 - PSHx: 08:11 section; tubal ligation; aa5 - Immunization history:: Adult Immunizations up to date. - Infectious Disease History:: Denies. - Social history:: Smoking status: Patient denies any tobacco usage or history of. Screenin:06 [facility] ED Fall Risk Assessment (Adult) History of falling in the last 3 months, rs5 including since admission No falls in past 3 months (0 pts) Confusion or Disorientation No (0 pts) Intoxicated or Sedated No (0 pts) Impaired Gait No (0 pts) Mobility Assist Device Used No (0 pt) Altered Elimination No (0 pt) Score/Fall Risk Level 0 - 2 = Low Risk Oriented to surroundings, Maintained a safe environment. Abuse screen: Denies threats or abuse. Nutritional screening: No deficits noted. Tuberculosis screening: No symptoms or risk factors identified. Assessment: 08:06 General: Appears in no apparent distress. uncomfortable, Behavior is cooperative. Pain: rs5 Complains of pain in lower abdomen Pain currently is 7 out of 10 on a pain scale. Quality of pain is described as aching, Is continuous. Neuro: Level of Consciousness is awake, alert, obeys commands, Oriented to person, place, time, situation. Cardiovascular: Patient's skin is warm and dry. Rhythm is regular. Respiratory: Airway is patent Respiratory effort is even, unlabored, Respiratory pattern is regular, symmetrical. GI: Abdomen is round non-distended, Abd is soft and non tender X 4 quads. GI: Patient currently denies nausea. : No signs and/or symptoms were reported regarding the genitourinary system. EENT: No signs and/or symptoms were reported regarding the EENT system. Derm: Skin is intact, Skin is pink, warm \T\ dry. Musculoskeletal: Range of motion: intact in all extremities. 09:11 Reassessment: Patient and/or family updated on plan of care and expected duration. Pain rs5 level reassessed. Patient is alert, oriented x 3, equal unlabored respirations, skin warm/dry/pink. Patient denies pain at this time. Patient states feeling better. Patient states symptoms have improved. 09:49 Reassessment: No changes from previously documented assessment. rs5 Vital Signs: 08:11 BP 122 / 90; Pulse 64; Resp 18 S; Temp 97.8(TE); Pulse Ox 100% on R/A; aa5 09:40 BP 125 / 88; Pulse 68; Resp 18; Pulse Ox 99% on R/A; rs5 ED Course: 07:59 Patient arrived in ED. im 08:04 Melissa Sherman PA-C is PHCP. sb4 08:04 Tavo Jack MD is Attending Physician. sb4 08:05 Arm band placed on. aa5 08:06 Patient has correct armband on for positive identification. Placed in gown. Bed in low rs5 position. Call light in reach. Side rails up X2. 08:07 Holden Torres, RN is Primary Nurse. rs5 08:07 No provider procedures requiring assistance completed. rs5 08:10 Inserted saline lock: 20 gauge in left antecubital area, using aseptic technique. Blood rs5 collected. 08:12 Triage completed. aa5 08:58 CT Abd/Pelvis - IV Contrast Only In Process Unspecified. EDMS 09:55 IV discontinued, intact, bleeding controlled, No redness/swelling at site. Pressure rs5 dressing applied. Administered Medications: 08:30 Drug: NS 0.9% IV 1000 ml IV at 1 bolus Per protocol; 1000 mL bolus Route: IV; Rate: 1 rs5 bolus; Site: left antecubital; 08:45 Follow up: Response: No adverse reaction rs5 09:33 Follow up: IV Status: Completed infusion rs5 08:30 Drug: Ondansetron IVP 4 mg IVP once; over 2 minutes Route: IVP; Site: left antecubital; rs5 08:45 Follow up: Response: No adverse reaction rs5 08:30 Drug: morphine IVP or IV 4 mg IVP once over 4 mins Route: IVP; Infused Over: 4 mins; rs5 Site: left antecubital; 08:45 Follow up: Response: No adverse reaction rs5 Medication: 08:12 VIS not applicable for this client. rs5 Outcome: 09:45 Discharge ordered by . sb4 09:55 Discharged to home ambulatory, rs5 09:55 Condition: stable 09:55 Discharge instructions given to patient, family, Instructed on discharge instructions, follow up and referral plans. medication usage, Demonstrated understanding of instructions, follow-up care, medications, Prescriptions given X 1, 09:58 Patient left the ED. rs5 Signatures: Dispatcher [employer] EDUT Jacinta Nobles RN RN aa5 Melissa Sherman PA-C PAErickC sb4 Holden Torres RN RN rs5 Bhavya Titus Corrections: (The following items were deleted from the chart) 10:03 09:05 BP 125 / 88; Pulse 68bpm; Resp 18bpm; Pulse Ox 99% RA; rs5 rs5
[2024-03-22 10:19] VITALS: BP 122/90; TEMP 97.8; O2SAT 100
== END 2024-03-22 09:58 | disposition home or self-care (01) ==
LOC: ER 07:54
DX: R10.30 Lower abdominal pain, unspecified (principal)
CPT/HCPCS: 36415; 74177; 80053; 81001; 81025; 83690; 85025; 96361; 96374; 96375; 99284; J2405; J7030; Q9967

== ENCOUNTER 2024-11-14 20:19 | Emergency (ER) | payer SELFPAY ==
--- OUTSIDE RECORDS SUMMARY | 2024-11-14 20:22 | XMS REPORT | Continuity of Care Document ---
Author Name Unknown Address [address] [facility] [address] [place] [address] [facility] thconnect Address [address] [facility] [address] [place] [address] Care Team Providers Care Tool Machine Setup Operator Name Role Phone Janette Copeland Primary Care Physician KANDICE DAVALOS Attending Clinician Kandice Rivera Attending Clinician Visit, Gamaliel Nurse Attending Clinician Unava ilnallely Doctor Unassigned, Neihart Attending Clinician U navailable Timoteo Israel MD, Wren Attending Clinician + LARISSA SMYTH Attending Clinician Unav ailnallely Ultrasound, Eveliahector Attending Clinician Juan Diego Aburto Attending Clinician [phone] Timoteo Israel MD, Larissa Admitting Clinician + LARISSA SMYTH Admitting Clinician Unav ailable Payers Payer Name Policy Type Policy Number Effective Date Expirati on Date Source [facility] MOM CHIP AMIE [id number] FPL [id number] 2019 00:00:00 Problems Condition Name Condition Details Condition Category Status Onset Date Resolution Date Last Treatment Date Treating Clinician Comments Source care and examinatio n immediatel y after delivery care and examinatio n immediatel y after delivery Disease Active 2-24 00:00: 00 [facility] 39 weeks gestation of 39 weeks gestation of Disease Active 2-02 00:00: 00 [facility] Herpes simplex type 2 infection affecting , antepartum , third trimester Herpes simplex type 2 infection affecting , antepartum , third trimester Disease Active 2018-1118 00:00: 00 [facility] 29 weeks gestation of 29 weeks gestation of Disease Active 2018-11 00:00: 00 [facility] Round ligament pain Round ligament pain Disease Active 2018-11 00:00: 00 [facility] Flu vaccine need Flu vaccine need Disease Active 2018-1120 00:00: 00 [facility] Pedal edema Pedal edema Disease Active 9-11 00:00: 00 [facility] Obesity in Obesity in Disease Active 8-13 00:00: 00 [facility] Morbid obesity Morbid obesity Disease Active 8-13 00:00: 00 [facility] High risk , antepartum High risk , antepartum Disease Active 8-13 00:00: 00 [facility] Previous delivery affecting , antepartum Previous delivery affecting , antepartum Disease Active 8-13 00:00: 00 [facility] Multiparit y Multiparit y Disease Active 8-13 00:00: 00 [facility] GBS (group B Streptococ cus carrier), +RV culture, 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), +RV culture, currently Disease Active 6 00:00: 00 [facility] Tdap given 04/27/2013 Tdap given 04/27/2013 Disease Active 04-27 00:00: 00 [facility] Allergies, Adverse Reactions, Alerts Allergy Name Allergy Type Status Severity Reaction(s) Onset Date Inactive Date Treating Clinician Comments Source NO KNOWN ALLERGIE S Drug Class Active [facility] Social History Social Habit Start Date Stop Date Quantity Comments Source ASSERTION 2019-04-03 00:00:00 [facility] Sex [facility]igned [facility] Alcohol intake 2020-01-10 00:00:00 2020-01-10 00:00:00 [facility] Smoking Status Start Date Stop Date Source Never smoker [facility] Medications Ordered Medication Name Filled Medication Name Start Date Stop Date Current Medication? Ordering Clinician Indication Dosage Frequency Signature (SIG) Comments Components Source spironolact one 25 mg tablet 2023-11 00:00: 00 Yes 1mg Charles Reddy meclizine 25 mg tablet 2023-11 00:00: 00 Yes 1mg Charles Reddy TAKE ONE (1) TABLET(S) BY MOUTH ONCE A DAY. 2021-11 0 00:00: 00 Yes Charles Reddy fluconazole 150 mg tablet 12-17 00:00: 00 Yes 1mg Charles Reddy vit/iron fum/folic ac ( 1 + 1 ORAL) 12-20 12:29: 35 12-20 00:00 :00 No Take by mouth. [facility] ceFAZolin in dextrose (iso-os) (ANCEF) 2 gram/100 mL Piggyback 2 g 12-20 04:00: 00 12-20 20:13 :00 No 2000mg 2 g (2,000 mg), IV Piggyback, Q8H ABX, 3 doses, First dose on Fri12/19/19 at 2200, Last dose on Fri12/20/19 at 1400, 100 mL
Reas on for Anti-Infec tive: Surgical Prophylaxi s
Surgi rosalee Prophylaxi s: PARALEGAL
Duration of therapy: within 24 hours of surgery [facility] vitamin w/FA tablet 12-20 00:00: 00 Yes [id number] 1{tbl} Take 1 tablet by mouth daily. [facility] docusate calcium 240 mg capsule 12-20 00:00: 00 Yes [id number] 240mg Take 1 capsule by mouth once daily as needed for Constipati on. [facility] ferrous sulfate 325 mg (65 mg iron) tablet 12-20 00:00: 00 Yes [id number] 325mg Take 1 tablet by mouth 2 (two) times daily. [facility] ibuprofen 600 mg tablet 12-20 00:00: 00 Yes [id number] 600mg Take 1 tablet by mouth every 6 (six) hours as needed (Pain). Take with food or milk. [facility] HYDROcodone -acetaminop hen 5-325 mg tablet 12-20 00:00: 00 12-28 05:59 :00 No [id number] 1{tbl} Take 1 tablet by mouth every 6 (six) hours as needed (Pain scale above 4) for up to 7 days. Do not exceed 3 grams of acetaminop hen in 24 hours. [facility] rho(D) immune globulin (RHOGAM) syringe 300 mcg 12-19 23:32: 10 Yes 300ug 300 mcg, Intramuscu lar, ONCE, For 1 dose, Conditiona l, Routine [facility] HYDROcodone -acetaminop hen (NORCO 5) 5-325 mg tablet 2 tablet 12-19 23:32: 05 Yes 2{tbl} 2 tablet, Oral, Q6HPRN, Starting 12/19/19 at 1732, Until Discontinu ed, Routine, Pain (scale 7-10), If uncontroll ed by Ibuprofen [facility] HYDROcodone -acetaminop hen (NORCO 5) 5-325 mg tablet 1 tablet 12-19 23:32: 05 Yes 1{tbl} 1 tablet, Oral, Q6HPRN, Starting 12/19/19 at 1732, Until Discontinu ed, Routine, Pain (scale 4-6), If uncontroll ed by Ibuprofen [facility] ibuprofen (IBU) tablet 600 mg 12-19 23:32: 05 Yes 600mg 600 mg, Oral, Q6HPRN, Starting 12/19/19 at 1732, Until Discontinu ed, Routine, Pain (scale 1-3) [facility] ondansetron (ZOFRAN (PF)) injection 4 mg 12-19 23:32: 05 Yes 4mg 4 mg, Slow IV Push, Q8HPRN, Starting 12/19/19 at 1732, Until Discontinu ed, Routine, Nausea and Vomiting (N/V) [facility] simethicone (GAS RELIEF (SIMETHICON E)) chewable tablet 160 mg 12-19 23:32: 05 Yes 160mg 160 mg, Oral, PC+HSPRN, Starting 12/19/19 at 1732, Until Discontinu ed, Routine, Gas [facility] magnesium hydroxide (MILK OF MAGNESIA) 400 mg/5 mL suspension 30 mL 12-19 23:32: 05 Yes 30mL 30 mL, Oral, QDAILYPRN, Starting 12/19/19 at 1732, Until Discontinu ed, Routine, Constipati on [facility] diphenhydrA MINE (BENADRYL) tablet 25 mg 12-19 23:32: 04 Yes 25mg 25 mg, Oral, Q6HPRN, Starting 12/19/19 at 1732, Until Discontinu ed, Routine, Sleep, Itching [facility] bisacodyL (DULCOLAX) suppository 10 mg 12-19 23:32: 04 Yes 10mg 10 mg, Rectal, QDAILYPRN, Starting 12/19/19 at 1732, Until Discontinu ed, Routine, Constipati on [facility] docusate calcium (SURFAK) capsule 240 mg 12-19 23:32: 04 Yes 240mg 240 mg, Oral, QDAILYPRN, Starting 12/19/19 at 1732, Until Discontinu ed, Routine, Constipati on [facility] ketorolac (TORADOL) injection 30 mg 12-19 21:33: 17 12-19 21:44 :00 No 30mg 30 mg, Slow IV Push, PRN, 1 dose, Starting 12/19/19 at 1533, Until 12/19/19 at 1544, Routine, Pain (scale 7-10)
F aculty member approving Restricted medication : NALINI LUBIN [facility] nalbuphine (NUBAIN) injection 5 mg 12-19 21:32: 43 Yes 5mg 5 mg, Intravenou s, PRN, 1 dose, Starting 12/19/19 at 1532, Until Discontinu ed, Routine, Itching [facility] naloxone (NARCAN) injection 0.4 mg 12-19 21:32: 43 12-22 00:14 :19 No .4mg 0.4 mg, Slow IV Push, PRN - SEE INSTRUCTIO NS, Starting 12/19/19 at 1532, Until 12/21/19 at 1814, Routine, Analgesia Recovery [facility] acetaminoph en (TYLENOL) tablet 650 mg 12-19 18:00: 00 12-19 18:07 :00 No 650mg 650 mg, Oral, ONCE, 1 dose, 12/19/19 at 1200, Routine [facility] lactated ringers IV infusion 1,000 mL 12-19 18:00: 00 12-19 23:32 :10 No 1000mL at 125 mL/hr, 1,000 mL, IV Infusion, CONTINUOUS , Starting 12/19/19 at 1200, Until 12/19/19 at 1732, Routine [facility] lactated ringers IV infusion 500 mL 12-19 18:00: 00 12-19 18:06 :00 No 500mL at 999 mL/hr, 500 mL, IV Infusion, ONCE, 1 dose, 12/19/19 at 1200, Routine [facility] ceFAZolin in dextrose (iso-os) (ANCEF) 2 gram/100 mL Piggyback 2 g 12-19 17:50: 35 12-19 19:01 :00 No 2000mg 2 g (2,000 mg), IV Piggyback, O.R. HOLDING ONCE, 1 dose, Starting 12/19/19 at 1150, Until 12/19/19 at 1301, 100 mL
Reas on for Anti-Infec tive: Surgical Prophylaxi s
Surgi rosalee Prophylaxi s: PARALEGAL
Duration of therapy: within 24 hours of surgery [facility] sodium citrate-cit brayan acid (BICITRA) 500-334 mg/5 mL solution 30 mL 12-19 17:50: 35 12-19 19:02 :00 No 30mL 30 mL, Oral, PRE-PROCED URE ONCE, 1 dose, Starting 12/19/19 at 1150, Until 12/19/19 at 1302, Routine, Surgery/Pr ocedure [facility] valACYclovi r (VALTREX) 500 mg tablet 12-08 00:00: 00 Yes [id number] 500mg Take 1 tablet by mouth daily. [facility] vit/iron fum/folic ac ( 1 + 1 ORAL) 2018-11 01:28: 36 Yes Take by mouth. [facility] vit/iron fum/folic ac ( 1 + 1 ORAL) 06-29 18:25: 05 Yes Take by mouth. [facility] vit 33-iron-fol ic-dha (SELECT-OB + DHA) 29 mg iron-1 mg -250 mg combo pack 06-29 00:00: 00 12-20 00:00 :00 No [id number] 1{packe t} Take 1 Packet by mouth daily. [facility] amoxicillin 500 mg tablet 04-26 00:00: 00 Yes 1mg Charles Reddy benzonatate 100 mg capsule 04-26 00:00: 00 Yes 1mg Charles Reddy promethazin e-DM 6.25 mg-15 mg/5 mL syrup 12-24 00:00: 00 Yes 10mg/5 mL Charles Reddy ProAir HFA 90 mcg/actuati on aerosol inhaler 2016-11 00:00: 00 Yes 12mcg/a ctuatio n Charles Reddy guaifenesin 400 mg tablet 2016-11 00:00: 00 Yes 1mg Charles Reddy amoxicillin 500 mg tablet 2016-11 00:00: 00 Yes 1mg Charles Reddy Vital Signs Vital Name Observation Time Observation Value Comments S bayron Systolic blood pressure 2020-01-10 17:05:00 130 mm[Hg] [place] [facility] Diastolic blood pressure 2020-01-10 17:05:00 80 mm[Hg] [place] [facility] Heart rate 2020-01-10 17:05:00 79 /min Unive [facility] Body temperature 2020-01-10 17:05:00 36.5 Yane [facility] Respiratory rate 2020-01-10 17:05:00 16 /min [facility] Body height 2020-01-10 17:05:00 162.6 [facility] 2020-01-10 17:05:[address] [facility] BMI 2020-01-10 17:05:00 50.72 kg/m2 [facility] Systolic blood pressure 2019-12-27 15:15:00 132 mm[Hg] [facility] Diastolic blood pressure 2019-12-27 15:15:00 80 mm[Hg] [facility] Heart rate 2019-12-27 15:09:00 74 /min Unive [facility] Body temperature 2019-12-27 15:09:00 36.78 Yane [facility] Respiratory rate 2019-12-27 15:09:00 16 /min [facility] Body height 2019-12-27 15:09:[address] [facility] Body weight 2019-12-27 15:09:[address] [facility] BMI 2019-12-27 15:09:00 52.04 kg/m2 [facility] Systolic blood pressure 2019-12-24 17:10:00 123 mm[Hg] [facility] Diastolic blood pressure 2019-12-24 17:10:00 78 mm[Hg] [facility] Heart rate 2019-12-24 17:10:00 71 /min Un[facility] Body temperature 2019-12-24 17:10:00 36.72 Yane [facility] Respiratory rate 2019-12-24 17:10:00 16 /min [facility] Body height 2019-12-24 17:10:[address] [facility] Body weight 2019-12-24 17:10:[address] [facility] BMI 2019-12-24 17:10:00 53.58 kg/m2 [facility] Systolic blood pressure 2019-12-21 14:00:00 134 mm[Hg] [facility] Diastolic blood pressure 2019-12-21 14:00:00 68 mm[Hg] [facility] Heart rate 2019-12-21 14:00:00 79 /min Un[facility] Body temperature 2019-12-21 14:00:00 36.33 Yane [facility] Respiratory rate 2019-12-21 14:00:00 18 /min [facility] Oxygen saturation in Arterial blood by Pulse oximetry 2019-12-21 14:00:00 97 /min [facility] Body height 2019-12-19 17:37:[address] [facility] Body weight 2019-12-19 17:37:[address] [facility] BMI 2019-12-19 17:37:00 55.69 kg/m2 [facility] Systolic blood pressure 2019-12-15 16:07:00 138 mm[Hg] [facility] Diastolic blood pressure 2019-12-15 16:07:00 74 mm[Hg] [facility] Heart rate 2019-12-15 16:07:00 97 /min Un[facility] Body temperature 2019-12-15 16:07:00 36.11 Yane [facility] Respiratory rate 2019-12-15 16:07:00 16 /min [facility] Body height 2019-12-15 16:07:[address] [facility] Body weight 2019-12-15 16:07:[address] [facility] BMI 2019-12-15 16:07:00 55.97 kg/m2 [facility] Systolic blood pressure 2019-12-08 15:34:00 110 mm[Hg] [facility] Diastolic blood pressure 2019-12-08 15:34:00 62 mm[Hg] [facility] Heart rate 2019-12-08 15:02:00 84 /min Unive [facility] Body temperature 2019-12-08 15:02:00 36.33 Yane [facility] Respiratory rate 2019-12-08 15:02:00 16 /min [facility] Body height 2019-12-08 15:02:00 157.5 [facility] weight 2019-12-08 15:02:[address] [facility] BMI 2019-12-08 15:02:00 56.88 kg/m2 [facility] Body weight 2019-12-01 16:10:00 139.3 kg [facility] BMI 2019-12-01 16:10:00 56.17 kg/m2 [facility] Systolic blood pressure 2019-12-01 16:10:00 115 mm[Hg] [facility] Diastolic blood pressure 2019-12-01 16:10:00 70 mm[Hg] [facility] Heart rate 2019-12-01 16:10:00 78 /min [facility] Body temperature 2019-12-01 16:10:00 36.67 Yane [facility] Respiratory rate 2019-12-01 16:10:00 16 /min [facility] Body height 2019-12-01 16:10:00 157.5 cm [facility] Systolic blood pressure 2019-07-28 15:15:00 113 mm[Hg] [facility] Diastolic blood pressure 2019-07-28 15:15:00 69 mm[Hg] [facility] Heart rate 2019-07-28 15:15:00 79 /min Unive [facility] Body temperature 2019-07-28 15:15:00 37.06 Yane [facility] Respiratory rate 2019-07-28 15:15:00 18 /min [facility] Body height 2019-07-28 15:15:[address] [facility] Body weight 2019-07-28 15:15:00 137.922 kg [facility] BMI 2019-07-28 15:15:00 55.61 kg/m2 [facility] Systolic blood pressure 2019-06-29 18:21:00 126 mm[Hg] [facility] Diastolic blood pressure 2019-06-29 18:21:00 77 mm[Hg] [facility] Heart rate 2019-06-29 18:21:00 96 /min Unive [facility] Body temperature 2019-06-29 18:21:00 36.72 Yane [facility] Respiratory rate 2019-06-29 18:21:00 16 /min [facility] Body height 2019-06-29 18:21:00 157.5 cm [facility] Body weight 2019-06-29 18:21:00 136.589 kg [facility] BMI 2019-06-29 18:21:00 55.08 kg/m2 [facility] Heart Rate 2024-08-27 09:44:00 66.00 /min Joy en F Barry Respiratory Rate 2024-08-27 09:44:00 16.00 /min Charles F Barry BP Systolic 2024-08-27 09:44:00 132 mm[Hg] Step hen F Barry BP Diastolic 2024-08-27 09:44:00 70 mm[Hg] Daljit phen F Barry Weight Measured 2024-08-27 09:44:00 302.20 pounds Charles F Barry Height Measured 2024-08-27 09:44:00 65.00 inches Charles F Barry Body Temperature 2024-08-27 09:44:00 98.10 degrees Charles F Barry BP Systolic 2021-12-17 14:54:00 127 mm[Hg] Step hen F Barry BP Diastolic 2021-12-17 14:54:00 84 mm[Hg] Daljit phen F Barry Weight Measured 2021-12-17 14:54:00 257.00 pounds Charles F Barry Height Measured 2021-12-17 14:54:00 65.00 inches Charles F Barry Body Temperature 2021-12-17 14:54:00 98.70 degrees Charles F Barry Heart Rate 2021-12-17 14:54:00 88.00 /min Joy en F Barry Respiratory Rate 2021-12-17 14:54:00 Charles F Barry BP Systolic 2019-04-26 12:23:00 128 mm[Hg] Step hen F Barry BP Diastolic 2019-04-26 12:23:00 76 mm[Hg] Daljit phen F Barry Weight Measured 2019-04-26 12:23:00 298.60 pounds Charles F Barry Height Measured 2019-04-26 12:23:00 65.00 inches Charles F Barry Body Temperature 2019-04-26 12:23:00 98.30 degrees Charles F Barry Heart Rate 2019-04-26 12:23:00 88.00 /min Joy en F Barry Respiratory Rate 2019-04-26 12:23:00 16.00 /min Charles F Barry BP Systolic 2018-09-30 11:08:00 132 mm[Hg] Step hen F Barry BP Diastolic 2018-09-30 11:08:00 84 mm[Hg] Daljit phen F Barry Weight Measured 2018-09-30 11:08:00 300.00 pounds Charles F Barry Height Measured 2018-09-30 11:08:00 65.00 inches Charles F Barry Body Temperature 2018-09-30 11:08:00 98.50 degrees Charles F Barry Heart Rate 2018-09-30 11:08:00 97.00 /min Joy en F Barry Respiratory Rate 2018-09-30 11:08:00 16.00 /min Charles F Barry BP Systolic 2017-12-24 15:57:00 139 mm[Hg] Step hen F Barry BP Diastolic 2017-12-24 15:57:00 87 mm[Hg] Daljit phen F Barry Weight Measured 2017-12-24 15:57:00 295.20 pounds Charles F Barry Height Measured 2017-12-24 15:57:00 65.00 inches Charles F Barry Body Temperature 2017-12-24 15:57:00 98.40 degrees Charles F Barry Heart Rate 2017-12-24 15:57:00 82.00 /min Joy en F Barry Respiratory Rate 2017-12-24 15:57:00 Charles F Barry BP Systolic 2017-09-19 15:05:00 134 mm[Hg] Step hen F Barry BP Diastolic 2017-09-19 15:05:00 86 mm[Hg] Daljit phen F Barry Weight Measured 2017-09-19 15:05:00 289.40 pounds Charles F Barry Height Measured 2017-09-19 15:05:00 65.00 inches Charles F Barry Body Temperature 2017-09-19 15:05:00 98.90 degrees Charles F Barry Heart Rate 2017-09-19 15:05:00 94.00 /min Joy en F Barry Respiratory Rate 2017-09-19 15:05:00 16.00 /min Charles F Barry Procedures Procedure Date / Time Performed Performing Clinician Source PATIENT CORRESPONDENCE (LETTERS, USPS DOCUMENTATION) 2019-12-24 06:01:00 Doctor Unassigned, Neihart [facility] CBC WITH DIFFERENTIAL 2019-12-20 08:20:00 Tamara Jameson [facility] VENOUS CORD GAS 2019-12-19 19:51:00 Gisell [facility] SECTION 2019-12-19 18:54:00 Mahmood Aravind larios, [facility] TUBAL LIGATION 2019-12-19 18:54:00 Timoteo fernandez, [facility] CBC WITH DIFFERENTIAL 2019-12-19 18:02:00 Tamara Jameson [facility] HEPATITIS B SURFACE ANTIGEN 2019-12-19 18:02:00 Gisell [facility] GALV ONLY - SYPHILIS IGG/IGM 2019-12-19 18:02:00 Gisell [facility] HB ABO GROUPING 2019-12-19 17:55:00 Gisell [facility] RHO (D) IMMUNE GLOBULIN 2019-12-19 17:55:00 Yolanda Jameson [facility] POCT URINALYSIS 2019-12-15 16:08:00 Kandice Davalos [facility] POCT URINALYSIS 2019-12-08 15:13:00 Kandice Davalos [facility] POCT TEST 2019-12-01 16:36:00 Abena Davalos [facility] POCT URINALYSIS W/O SPECIFIC GRAVITY 2019-12-01 16:15:00 Kandice Davalos [facility] IMMTRAC2 CONSENT 2019-09-22 06:01:00 Doctor Lakshmis signed, Neihart [facility] POCT URINALYSIS 2019-07-28 15:19:00 Kandice Davalos [facility] POCT TEST 2019-06-29 18:26:00 Abena Davalos [facility] POCT URINALYSIS W/O SPECIFIC GRAVITY 2019-06-29 18:26:00 Kandice Davalos [facility] REPORT OF 2019-06-29 05:01:00 Doctor Heidi sanders, Neihart [facility] Encounters Start Date/Time End Date/Time Encounter Type Admission Type Attending [facility] Facility Care Department Encounter ID Source 2024-08-27 09:29:39 2024-08-27 09:29:39 Outpatient [facility] [id number] Charles Reddy 2024-08-27 00:00:00 2024-08-27 00:00:00 Outpatient Visit [facility] [id number] Charles Reddy 2023-09-01 14:48:01 2023-09-01 14:48:01 Outpatient [facility] [id number] Charles Cross Barry 2022-08-26 10:14:47 2022-08-26 10:14:47 Outpatient [facility] [id number] Charles Reddy 2020-02-02 10:15:00 2020-02-02 10:15:00 Outpatient KANDICE MENDOZA [facility] [id number] [facility] 2020-01-10 10:39:22 2020-01-10 11:25:50 Routine Visit Kandice Davalos [facility] PARALEGAL [facility] [id number] [facility] 2020-01-10 10:45:00 2020-01-10 10:45:00 Outpatient KANDICE MENDOZA [facility] [id number] [facility] 2019-12-27 08:56:58 2019-12-27 09:11:58 [facility] PARALEGAL [facility] .[id number] [facility] 2019-12-24 10:44:14 2019-12-24 11:21:11 Nurse Visit Visit, KelliKandice Caruso [facility] PARALEGAL [facility] [id number] [id number] [facility] 2019-12-24 00:00:00 2019-12-24 00:00:00 Orders Only Doctor Unassigned, Neihart [facility] [id number] [id number] [facility] 2019-12-19 11:10:00 2019-12-21 10:28:00 Hospital Encounter Larissa Wilson [facility] [id number] [id number] [id number] [facility] 2019-12-19 11:10:00 2019-12-21 10:28:00 [facility] [id number] [facility] 2019-12-15 10:02:24 2019-12-15 10:28:30 Routine Visit Kandice Davalos [facility] PARALEGAL [facility] [id number] [id number] [id number] [id number] [facility] 2019-12-08 08:31:15 2019-12-08 09:36:38 Routine Visit Kandice Davalos [facility] PARALEGAL [facility] [id number] [id number] [facility] 2019-12-01 09:52:57 2019-12-01 10:36:43 Routine Visit Kandice Davalos [facility] PARALEGAL [facility] [id number] [id number] [id number] [id number] [facility] 2019-07-28 10:08:18 2019-07-28 10:47:38 Routine Visit Kandice Davalos [facility] PARALEGAL [facility]ILD [facility] [id number] [id number] [id number] [facility] 2019-07-01 09:12:43 2019-07-01 09:47:52 Contracting Executive Visit Ultrasound, Juan Diego Wiley [facility] PARALEGAL [facility] CHILD [facility] [id number] [id number] [id number] [id number] [facility] 2019-07-01 00:00:00 2019-07-01 00:00:00 Abstract Kandice Davalos [facility] [id number] [id number] [facility] 2019-06-29 13:07:33 2019-06-29 14:12:08 Initial Visit Kandice Davalos [facility] [id number] [id number] [id number] [facility] 2019-06-29 00:00:00 2019-06-29 00:00:00 Orders Only Doctor Unassigned, [place] [facility] [id number] [id number] [id number] [facility] Results Test Description Test Time Test Comments Results Result Co mments Source COMPREHENSIVE METABOLIC [id number] 04:08:17* Test Item Value Reference Range Interpretation Comme nts GLUCOSE (test code = 2217) 88 MG/DL 70-99 BUN (test code = 2208) 9 MG/DL 6-20 CREATININE (test code = 2214) 0.61 MG/DL 0.60-1.30 eGFR (2020 CKD-EPI) (test code = 06714) 118 ML/MIN/1.73 >60 CALC BUN/CREAT (test code = 2234) 15 RATIO 6-28 SODIUM (test code = 2230) 138 MEQ/L 133-146 POTASSIUM (test code = 2227) 4.0 MEQ/L 3.5-5.4 CHLORIDE (test code = 2214) 106 MEQ/L 95-107 CARBON DIOXIDE (test code = 2205) 24 MEQ/L 19-31 CALCIUM (test code = 2208) 8.8 MG/DL 8.5-10.5 PROTEIN, TOTAL (test code = 2228) 7.2 G/DL 6.1-8.3 ALBUMIN (test code = 2200) 4.0 G/DL 3.5-5.2 CALC GLOBULIN (test code = 2239) 3.2 G/DL 1.9-3.7 CALC A/G RATIO (test code = 2233) 1.3 RATIO 1.0-2.6 BILIRUBIN, TOTAL (test code = 2206) 0.3 MG/DL <=1.2 ALKALINE PHOSPHATASE (test code = 2203) 79 U/L 40-112 AST (test code = 2217) 16 U/L 9-40 ALT (test code = 2218) 21 U/L 5-40 HEMOGLOBIN [id number] 02:40:34* Test Item Value Reference Range Interpretation Comme nts HEMOGLOBIN A1c (test code = 52118) 5.7 % 4.2-5.6 H [employer]ATION GUIDELINES FOR HGB A1C: PREDIABETES/INCREASED RISK . . . . . . . 5.7-6.4% DIAGNOSIS OF DIABETES . . . . . . . . . >=6.5% WITH CONFIRMATION OR APPROPRIATE SYMPTOMS NOTE: ASSAY MAY BE AFFECTED BY HEMOGLOBINOPATHIES (SICKLE CELL ANEMIA, S-C DISEASE, OTHERS) OR ARTIFICIALLY LOWERED BY DECREASED RED CELL SURVIVAL (HEMOLYTIC ANEMIAS, BLOOD LOSS, ETC.). CONSIDER ALTERNATE TESTING OR LABORATORY CONSULTATION. UNLESS OTHERWISE INDICATED, ALL TESTING PERFORMED AT [facility] [address] [place] [id number] IMPROVEMENT DIRECTOR: TULIO ZAVALA M.D. [place] NUMBER [id number] [facility] [place]. [id number] COMPREHENSIVE METABOLIC [id number] 00:00:00* Test Item Value Reference Range Interpretation Comme nts GLUCOSE (test code = 2217) 88 MG/DL BUN (test code = 2208) 9 MG/DL CREATININE (test code = 2214) 0.61 MG/DL eGFR (2020 CKD-EPI) (test code = 67529) 118 ML/MIN/1.73 CALC BUN/CREAT (test code = 2235) 15 RATIO SODIUM (test code = 2231) 138 MEQ/L POTASSIUM (test code = 2228) 4.0 MEQ/L CHLORIDE (test code = 2215) 106 MEQ/L CARBON DIOXIDE (test code = 2206) 24 MEQ/L CALCIUM (test code = 2209) 8.8 MG/DL PROTEIN, TOTAL (test code = 2229) 7.2 G/DL ALBUMIN (test code = 2201) 4.0 G/DL CALC GLOBULIN (test code = 2240) 3.2 G/DL CALC A/G RATIO (test code = 2234) 1.3 RATIO BILIRUBIN, TOTAL (test code = 2207) 0.3 MG/DL ALKALINE PHOSPHATASE (test code = 2204) 79 U/L AST (test code = 2218) 16 U/L ALT (test code = 2219) 21 U/L Charles ReddyTSH + FREE T4 [id number] 00:00:00* Test Item Value Reference Range Interpretation Comme nts TSH, THIRD GENERATION (test code = 2821) 2.300 UIU/ML FREE T4 (THYROXINE) (test co de = 2823) 1.09 NG/DL Charles ReddyHEMOGLOBIN [id number] 00:00:00* Test Item Value Reference Range Interpretation Comme nts HEMOGLOBIN A1c (test code = 03171) 5.7 % [place] AustinCT/NG, NAAT, [id number] 19:46:07* Test Item Value Reference Range Interpretation Comme nts GONORRHEA, NAAT (test code = 72533) NEGATIVE NEGATIVE IMPORTANT NO CHRISTOPHER: SEE ANNOUNCEMENT AT [email or web address] Note: Assay methodology is nucleic acid amplification by restaurant cashier mediated amplification (TMA) utilizing the Aptima Combo 2 Assay. CHLAMYDIA, NAAT (test code = 77513) NEGATIVE NEGATIVE IMPORTANT NO CHRISTOPHER: SEE ANNOUNCEMENT AT [email or web address] Note: Assay methodology is nucleic acid amplification by restaurant cashier mediated amplification (TMA) utilizing the Aptima Combo 2 Assay. VAGINAL PATHOGENS DNA [id number] 15:37:00* Test Item Value Reference Range Interpretation Comme nts CHARLIE SPECIES (test code = 55641) NEGATIVE NEGATIVE G. VAGINALIS (test code = 77702) NEGATIVE NEGATIVE T. VAGINALIS (test code = 13557) NEGATIVE NEGATIVE UNLESS OTHERWISE INDICATED, ALL TESTING PERFORMED [facility] [address] [place] [address] IMPROVEMENT DIRECTOR: WILLIAM OSBORNE M.D. [place] NUMBER [id number] [facility] [place]. [id number] GC AND CHLAMYDIA, AMPLIFIED, [id number] 00:00:00* Test Item Value Reference Range Interpretation Comme nts GONORRHEA, NAAT (test code = 71868) NEGATIVE CHLAMYDIA, NAAT (test code = 30026) NEGATIVE [facility] AustinVAGINAL PATHOGENS DNA [id number] 00:00:00* Test Item Value Reference Range Interpretation Comme nts CHARLIE SPECIES (test code = ) NEGATIVE G. VAGINALIS (test code = 04783) NEGATIVE T. VAGINALIS (test code = 03891) NEGATIVE Charles ReddyGALV ONLY - SYPHILIS [id number] 14:17:00* Test Item Value Reference Range Interpretation Comme nts Syphilis IgG/IgM (test code = 79167-3) Non-reactive Non-reactive KEHINDE (test code = KEHINDE) Non-reactive - No serologic evidence of T. pallidum infection. Cannot exclude incubating or early syphilis. Submit a second specimen in 2-4 weeks if syphilis is clinically suspected. Equivocal - Further testing to follow. Reactive - Further testing to follow. Lab Interpretation (test code = 43302-7) Normal [facility] WITH [id number] 09:06:00* Test Item Value Reference Range Interpretation Comme nts WBC (test code = 6690-2) See_Comment [Automated [employer]] The system which generated this result [...] 32.4 g/dL 31.6-35.1 RDW-SD (test code = 55139-3) 49.6 fL 39-49.9 RDW-CV (test code = 788-0) 16.0 % 12-15.5 H PLT (test code = 777-3) See_Comment L [Automated messa ge] The system which generated this result transmitted reference range: 166 - 358 10*3/?L. The reference range was not used to interpret this result as normal/abnormal. MPV (test code = 01117-9) 11.2 fL 9.5-12.9 NRBC/100 WBC (test code = 6694689080) See_Comment [Automated [employer] ssage] The system which generated this result transmitted reference range: 0.0 - 10.0 /100 WBCs. The reference range was not used to interpret this result as normal/abnormal. NRBC x10^3 (test code = 6780719404) <0.01 See_Comment [Automated messa ge] The system which generated this result transmitted reference range: 10*3/?L. The reference range was not used to interpret this result as normal/abnormal. GRAN MAT (NEUT) % (test code = 770-8) 78.8 % IMM GRAN % (test code = 3230718184) 0.40 % LYMPH % (test code = 736-9) 13.8 % MONO % (test code = 5905-5) 6.4 % EOS % (test code = 713-8) 0.5 % BASO % (test code = 706-2) 0.1 % GRAN MAT x10^3(ANC) (test code = 4677843733) 7.22 10*3/uL 1.88-7.09 H IMM GRAN x10^3 (test code = 6465135165) 0.04 10*3/uL 0-0.06 LYMPH x10^3 (test code = 731-0) 1.27 10*3/uL 1.32-3.29 L MONO x10^3 (test code = 742-7) 0.59 10*3/uL 0.33-0.92 EOS x10^3 (test code = 711-2) 0.05 10*3/uL 0.03-0.39 BASO x10^3 (test code = 704-7) <0.03 0.01-0.07 Lab Interpretation (test code = 43503-2) Abnormal [facility] IMMUNE [id number] 23:43:56* Test Item Value Reference Range Interpretation Comme nts RHIG CANDIDATE? (test code = 5055) No- see comment Patient is not a candidate for RhIg- Patient is Rh Positive.Performed at [facility] Laboratory Services - [facility] Blood [address] [place] [address]Gtvm Free: [phone] No. [id number] [facility] CenterArterial Cord [id number] 20:01:00* Test Item Value Reference Range Interpretation Comme nts BASE EXCESS, CORD (test code = 5438913445) mEq/L AC PH, CORD (BEAKER) (test code = 6772991745) 7.18-7.38 PC02, CORD (test code = 4266960460) See_Comment [Automated messa ge] The system which generated this result transmitted reference range: 32 - 66 mmHg. The reference range was not used to interpret this result as normal/abnormal. PO2, CORD (test code = 9210739644) See_Comment [Automated messa ge] The system which generated this result transmitted reference range: 10 - 30 mmHg. The reference range was not used to interpret this result as normal/abnormal. BICARBONATE, CORD (test code = 3704965813) See_Comment [Automated messa ge] The system which generated this result transmitted reference range: 17 - 27 mEq/L. The reference range was not used to interpret this result as normal/abnormal. [facility] Center[facility] Cord [id number] 19:58:00* Test Item Value Reference Range Interpretation Comme nts VENOUS BASE EXCESS, CORD (test code = 3987699452) mEq/L VENOUS PH, CORD (test code = 2836665286) 7.25-7.45 L VENOUS PC02, CORD (test code = 4355822715) See_Comment H [Automated me ssage] The system which generated this result transmitted reference range: 27 - 49 mmHg. The reference range was not used to interpret this result as normal/abnormal. VENOUS PO2, CORD (test code = 3278950864) See_Comment L [Automated me ssage] The system which generated this result transmitted reference range: 17 - 41 mmHg. The reference range was not used to interpret this result as normal/abnormal. VENOUS BICARBONATE, CORD (test code = 1876179861) See_Comment [Automa adam message] The system which generated this result transmitted reference range: 12 - 29 mEq/L. The reference range was not used to interpret this result as normal/abnormal. Lab Interpretation (test code = 59317-8) Abnormal [facility] CenterHepatitis B Surface [id number] 19:56:00 * Test Item Value Reference Range Interpretation Comme nts HBsAg Semi-Quantitative (fadi t code = 5195-3) Negative Negative [facility] CenterType and Screen - ONCE [id number] 18:44:46* Test Item Value Reference Range Interpretation Comme nts ABO & RH (test code = 20) O POSITIVE Performed at [facility] Laboratory [facility] - [facility] Blood [address] [address]Fcoc Free: [phone] No. [id number] IAT (test code = 1185) Negative Performed at [facility] Laboratory [facility] Blood [address] [address]Lvtd Free: [phone] No. [id number] [facility] CenterCBC WITH [id number] 18:15:00* Test Item Value Reference Range Interpretation [...] 32.5 g/dL 31.6-35.1 RDW-SD (test code = 20663-3) 47.6 fL 39-49.9 RDW-CV (test code = 788-0) 15.6 % 12-15.5 H PLT (test code = 777-3) See_Comment [Automated message] The system which generated this result transmitted reference range: 166 - 358 10*3/?L. The reference range was not used to interpret this result as normal/abnormal. MPV (test code = 13636-5) 11.6 fL 9.5-12.9 NRBC/100 WBC (test code = 8233056426) See_Comment [Automated message] The system which generated this result transmitted reference range: 0.0 - 10.0 /100 WBCs. The reference range was not used to interpret this result as normal/abnormal. NRBC x10^3 (test code = 6777187528) <0.01 See_Comment [Automated message] The system which generated this result transmitted reference range: 10*3/?L. The reference range was not used to interpret this result as normal/abnormal. GRAN MAT (NEUT) % (test code = 770-8) 83.7 % IMM GRAN % (test code = 9764587923) 0.30 % LYMPH % (test code = 736-9) 11.2 % MONO % (test code = 5905-5) 4.4 % EOS % (test code = 713-8) 0.2 % BASO % (test code = 706-2) 0.2 % GRAN MAT x10^3(ANC) (test code = 9938500598) 10.23 10*3/uL 1.88-7.09 H IMM GRAN x10^3 (test code = 9993683016) 0.04 10*3/uL 0-0.06 LYMPH x10^3 (test code = 731-0) 1.37 10*3/uL 1.32-3.29 MONO x10^3 (test code = 742-7) 0.54 10*3/uL 0.33-0.92 EOS x10^3 (test code = 711-2) 0.03 10*3/uL 0.03-0.39 BASO x10^3 (test code = 704-7) 0.03 10*3/uL 0.01-0.07 Lab Interpretation (test code = 76089-3) Abnormal [facility] URINALYSIS W SPECIFIC [id number] 16:11:00* Test Item Value Reference Range Interpretation [...] 3267) Lab Interpretation (test cod e = 47683-1) Abnormal [facility] URINALYSIS W SPECIFIC [id number] 16:11:00* Test Item Value Reference Range Interpretation [...] 3267) Lab Interpretation (test cod e = 21045-8) Abnormal [facility] URINALYSIS W SPECIFIC [id number] 15:13:00* Test Item Value Reference Range Interpretation [...] POCT U APPEAR (test code = 3267) [facility] [id number] 16:37:00* Test Item Value Reference Range Interpretation Comme nts POCT PREG (test code = 1605) Positive error On board controls acceptable with C Line (test code = 3574) Yes POCT PREG LOT # (test code = 3575) POCT PREG TEST DATE ( test code = 3576) [facility] [id number] 16:37:00* Test Item Value Reference Range Interpretation Comme nts POCT PREG (test code = 1605) Positive error On board controls acceptable with C Line (test code = 3574) Yes POCT PREG LOT # (test code = 3575) POCT PREG TEST DATE ( test code = 3576) [facility] URINALYSIS W/O SPECIFIC [id number] 16:15:00* Test Item Value Reference Range Interpretation [...] ve Lab Interpretation (test cod e = 45300-4) Abnormal [facility] URINALYSIS W/O SPECIFIC [id number] 16:15:00* Test Item Value Reference Range Interpretation [...] ve Lab Interpretation (test cod e = 85345-2) Abnormal [facility] URINALYSIS W SPECIFIC [id number] 15:19:00* Test Item Value Reference Range Interpretation [...] POCT U APPEAR (test code = 3267) [facility] CenterPO[facility] [id number] 18:26:00* Test Item Value Reference Range Interpretation Comme nts POCT PREG (test code = 1605) Positive On board controls acceptable with C Line (test code = 3574) Yes POCT PREG LOT # (test code = 3575) POCT PREG TEST DATE ( test code = 3576) [facility] CenterPOTN URIN[facility] W/O SPECIFIC [id number] 18:26:00* Test Item Value Reference Range Interpretation [...] = 3257) Neg Negative - Negati ve [facility]
--- NOTE | 2024-11-14 21:33 | RAD REPORT ---
EXAM: Chest Single View HISTORY: SWELLING COMPARISON: None. FINDINGS: LUNGS/PLEURA: The lungs are clear. No pleural effusions or pneumothorax. No pulmonary edema. MEDIASTINUM: The mediastinal silhouette is within normal limits. CARDIAC: The cardiac silhouette is within normal limits. UPPER ABDOMEN: No significant abnormality. BONES: No acute abnormality. LINES/TUBES/OTHER: N/A IMPRESSION: No evidence of acute cardiopulmonary disease.
--- NOTE | 2024-11-14 21:50 | RAD REPORT ---
EXAMINATION: US LOWER EXTREMITY VENOUS DOPPLER BILATERAL CLINICAL INDICATION: Female, 39 years old.SWELLING TECHNIQUE: Complete bilateral duplex sonography of the lower extremity veins was performed. The exami nation included compression for vein patency, color Doppler imaging and flow augmentation in response to distal compression of the distal external iliac, common femoral, femoral, popliteal, dane arsen, tibial and great saphenous veins. [id number]. COMPARISON: No prior exams FINDINGS: Duplex sonography imaging demonstrates all deep examined to be fully compressible with spontaneous, p hasic and augmented flow bilaterally. IMPRESSION: No evidence of deep venous thrombosis seen in either lower extremity.
[2024-11-14 23:26] LABS: Absolute Basophils 0.1 K/uL (0-0.5); Absolute Eosinophils 0.1 K/uL (0-0.5); Absolute Lymphocytes (CBC) 2.2 K/uL (0.7-4.9); Absolute Monocytes 0.7 K/uL (0.1-1.3); Absolute Neutrophil 4.7 K/uL (1.8-8.0); Basophils % 0.7 % (0-1.3); Eosinophils % 1.5 % (0-4.4); Hematocrit 35.5 % (36.0-45.0); Lymphocytes % 28.1 % (15.3-44.8); MCH 27.8 pg (27.0-35.0); MCHC 33.8 g/dL (32.0-36.0); MCV 82.4 fL (80-100); MPV 8.3 fL (7.6-11.3); Monocytes % 8.7 % (3.3-12.3); Platelets 236 thou/uL (152-406); RBC Red Blood Cell Count 4.31 M/uL (3.86-4.86)
[2024-11-14 23:34] LABS: ALT/SGPT 26 U/L (13-56); AST/SGOT 16 U/L (15-37); Albumin 2.9 g/dL (3.4-5.0); Albumin/Globulin Ratio 0.7 (1.1-1.8); Alkaline Phosphatase 87 U/L (45-117); Anion Gap 8.6 mEq/L (5.0-15.0); BUN Blood Urea Nitrogen 12 mg/dL (7-18); Bicarbonate 23 mEq/L (21-32); Bilirubin Total 0.2 mg/dL (0.2-1.0); Globulin 4.1 g/dL (2.3-3.5); Glomerular Filtration Rate 119 ml/min (=/>90); Glucose Level 114 mg/dL (74-106); NT PRO-BNP 23 pg/mL (<125); Potassium 3.6 mEq/L (3.5-5.1); Sodium Level 139 mEq/L (136-145); Troponin High Sensitivity 19.5 pg/mL (<58.9)
[2024-11-14 23:35] LABS: Bilirubin Direct < 0.2 mg/dL (0-0.2)
[2024-11-14 23:36] LABS: Specific Gravity 1.025 (1.005-1.030); Urine Bacteria <20 /HPF (<20); Urine Bilirubin NEGATIVE (Negative); Urine Blood Negative (Negative); Urine Clarity Extremely Turbid (Clear); Urine Color Light-Yellow (Yellow); Urine Culture Reflex Order NOT NEEDED; Urine Glucose NEGATIVE (Negative); Urine Ketones NEGATIVE (Negative); Urine Microscopic Reflex YN ORDER UMIC; Urine Nitrite NEGATIVE (Negative); Urine Protein NEGATIVE (Negative); Urine RBC <5 /HPF (None Seen); Urine Urobilinogen Normal (Normal)
--- NOTE | 2024-11-14 23:46 | EDPHYS ---
Physician Documentation [facility] Carol Name: Dorene Esquivel Age: 39 yrs Sex: Female : 1985 Arrival Date: 11/14/2024 Time: 20:19 Bed 18 Private MD: ED Physician Tavo Jack HPI: 11/14 23:48 This 39 yrs old Female presents to ER via Ambulatory with complaints of Feet kb Swelling, Low Back Pain. 23:48 Pt is a 39 year old female who presents for intermittent bilateral lower extremity kb edema that started one week ago and right low back pain that started upon waking this morning. States pain has progressively gotten worse. Denies numbness, tingling, shortness of breath, bowel/bladder issues, urinary symptoms. 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 - Infectious Disease History:: Denies. - Social history:: Smoking status: Patient denies any tobacco usage or history of. ROS: 23:46 Constitutional: As per HPI kb Exam: 22:43 ECG was reviewed by the Attending Physician. kb 23:46 Constitutional: This is a well developed, well nourished patient who is awake, alert, kb and in no acute distress. Head/Face: Normocephalic, atraumatic. ENT: Moist Mucous membranes Cardiovascular: Regular rate Respiratory: Respirations even and unlabored. No increased work of breathing. Talking in full sentences Abdomen/GI: Soft, non-tender. No distention Skin: Warm, dry with normal turgor. Normal color. MS/ Extremity: Pulses equal, no cyanosis. Neurovascular intact. Full, normal range of motion. Neuro: Awake and alert, GCS 15, oriented to person, place, time, and situation. 23:46 Back: pain, that is mild, that is moderate, of the right low back, ROM is normal, Vital Signs: 21:02 Resp 17; Temp 98.6; Weight 130.18 kg; Height 5 ft. 1 in. ; Pain 8/10; tm6 21:06 BP 127 / 71; Pulse 69; Pulse Ox 96% on R/A; MAP 87 mmHg; tm6 22:24 BP 130 / 84; Pulse 66; Resp 18 S; Pulse Ox 97% on R/A; Pain 9/10; br2 23:46 BP 145 / 71; Pulse 61; Resp 24; Pulse Ox 98% ; br2 23:58 BP 131 / 72; Pulse 61; Resp 22 S; Temp 97.2(TE); Pulse Ox 98% on R/A; Pain 8/10; br2 21:02 Body Mass Index 54.23 (130.18 kg, 154.94 cm) tm6 21:02 Pain Scale: Adult tm6 22:24 Pain Scale: Adult br2 23:58 Pain Scale: Adult br2 MDM: 20:24 Medical Screening Exam initiated kb 23:47 Differential diagnosis: arthritis, strain, sciatica, Herniated disc UTI, ARF, CHF. Data kb reviewed: vital signs, nurses notes. Counseling: I had a detailed discussion with the patient and/or guardian regarding the historical points, exam findings, and any diagnostic results supporting the discharge/admit diagnosis, lab results, radiology results, the need for outpatient follow up, a family practitioner, to return to the emergency department if symptoms worsen or persist or if there are any questions or concerns that arise at home. 11/14 20:39 Order name: Basic Metabolic Panel; Complete Time: 23:39 kb 11/14 20:39 Order name: CBC with Diff; Complete Time: 23:33 kb 11/14 20:39 Order name: LFT's; Complete Time: 23:39 kb 11/14 20:39 Order name: NT PRO-BNP; Complete Time: 23:39 kb 11/14 20:39 Order name: Troponin HS; Complete Time: 23:39 kb 11/14 20:39 Order name: Urinalysis w/ reflexes; Complete Time: 23:39 kb 11/14 20:39 Order name: XRAY Chest (1 view); Complete Time: 21:37 kb 11/14 20:39 Order name: US Extremity Venous W Compression Sánchez; Complete Time: 22:01 kb 11/14 20:39 Order name: EKG; Complete Time: 20:40 kb 11/14 20:39 Order name: Cardiac monitoring; Complete Time: 22:41 kb 11/14 20:39 Order name: EKG - Nurse/Tech; Complete Time: 22:41 kb 11/14 20:39 Order name: IV Saline Lock; Complete Time: 22:42 kb 11/14 20:39 Order name: Labs collected and sent; Complete Time: 22:42 kb 11/14 20:39 Order name: O2 Per Protocol; Complete Time: 22:42 kb 11/14 20:39 Order name: O2 Sat Monitoring; Complete Time: 22:42 kb EC:43 Rate is 59 beats/min. Rhythm is regular. QRS [place] is Normal. AR interval is normal at kb 112 msec. QRS interval is normal at 94 msec. QT interval is normal at 433 msec. Administered Medications: 23:57 Drug: Ketorolac IVP 15 mg IVP once Route: IVP; Site: right antecubital; br2 23:58 Follow up: Response: Medication administered at discharge. br2 23:57 Drug: Decadron - Dexamethasone IVP 10 mg IVP once Route: IVP; Site: right antecubital; br2 23:58 Follow up: Response: Medication administered at discharge. br2 Disposition Summary: 11/14/24 23:45 Discharge Ordered Notes: Location: Home kb Condition: Stable kb Diagnosis - Edema, unspecified kb - Low back pain kb Followup: kb - With: Emergency Department - When: As needed - Reason: Worsening of condition Followup: kb - With: Private Physician - When: 2 - 3 days - Reason: Recheck today's complaints, Continuance of care, Re-evaluation by your physician Discharge Instructions: - Discharge Summary Sheet kb - Sciatica, Vsvy-bb-Dxph kb - Peripheral Edema kb Forms: - Medication Reconciliation Form kb - Antibiotic Education kb - Prescription Opioid Use kb - Patient Portal Instructions kb - Leadership Thank You Letter kb Prescriptions: - Diclofenac Sodium 75 mg Oral tablet, delayed release (enteric coated) - take 1 tablet ORAL route 2 times per day As needed; 30 tablet; Refills: 0, kb Product Selection Permitted - orphenadrine citrate 100 mg Oral Tablet Sustained Release - take 1 tablet ORAL route 2 times per day As needed; 20 tablet; Refills: 0, kb Product Selection Permitted Addendum: 11/17/2024 16:21 I was immediately available for consultation during this patient's visit. I did not e c2 personally see the patient or discuss the patient with the ZAK. . Signatures: Dispatcher [employer] Sandra Peoples, CRIMPING PRESS OPERATOR-C CRIMPING PRESS OPERATOR-CkTavo Shook MD MD ec2 Mell Ortiz RN RN tm6 Irasema Larson RN RN br2 Corrections: (The following items were deleted from the chart) 11/14 21:02 21:02 Allergies: Aspirin; tm6 tm6
--- NOTE | 2024-11-14 23:46 | ER ---
Nurse's Notes [facility] Name: Dorene Esquivel Age: 39 yrs Sex: Female : 1985 Arrival Date: 11/14/2024 Time: 20:19 Bed 18 Private MD: Diagnosis: Edema, unspecified;Low back pain Presentation: 11/14 21:04 Chief complaint: Patient states: feet started to swell about 1 week ago. Left knee pain tm6 x1 month. Low back pain started this morning. No known injury. Coronavirus screen: Client denies travel out of the [place] in the last 14 days. Ebola Screen: Patient negative for fever greater than or equal to 101.5 degrees Fahrenheit, and additional compatible Ebola Virus Disease symptoms Patient denies exposure to infectious person. Patient denies travel to an Ebola-affected area in the 21 days before illness onset. No symptoms or risks identified at this time. Initial Sepsis Screen: Does the patient meet any 2 criteria? No. Patient's initial sepsis screen is negative. Does the patient have a suspected source of infection? No. Patient's initial sepsis screen is negative. Risk Assessment: Do you want to hurt yourself or someone else? Patient reports no desire to harm self or others. Onset of symptoms was November 14, 2024. 21:04 Method Of Arrival: Ambulatory tm6 21:04 Acuity: ARY 4 tm6 Triage Assessment: 21:04 General: Appears uncomfortable, Behavior is calm, cooperative. Pain: Complains of pain tm6 in back and left leg Pain currently is 8 out of 10 on a pain scale. EENT: No signs and/or symptoms were reported regarding the EENT system. Neuro: Level of Consciousness is awake, alert, obeys commands, Oriented to person, place, time, situation. Cardiovascular: Patient's skin is warm and dry. Respiratory: Airway is patent Respiratory effort is even, unlabored, Respiratory pattern is regular, symmetrical. GI: No signs and/or symptoms were reported involving the gastrointestinal system. Abdomen is obese. : No signs and/or symptoms were reported regarding the genitourinary system. Derm: No signs and/or symptoms reported regarding the dermatologic system. Musculoskeletal: Swelling present in right foot and left foot Reports pain in back and left leg Pain is 8 out of 10 on a pain scale. 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 - Infectious Disease History:: Denies. - Social history:: Smoking status: Patient denies any tobacco usage or history of. Screenin:04 [facility] ED Fall Risk Assessment (Adult) History of falling in the last 3 months, br2 including since admission No falls in past 3 months (0 pts) Confusion or Disorientation No (0 pts) Intoxicated or Sedated No (0 pts) Impaired Gait No (0 pts) Mobility Assist Device Used No (0 pt) Altered Elimination No (0 pt) Score/Fall Risk Level 0 - 2 = Low Risk Oriented to surroundings. Abuse screen: Denies threats or abuse. Denies injuries from another. Nutritional screening: No deficits noted. Tuberculosis screening: No symptoms or risk factors identified. Assessment: 21:45 Reassessment: Patient and/or family updated on plan of care and expected duration. Pain br2 level reassessed. Patient is alert, oriented x 3, equal unlabored respirations, skin warm/dry/pink. General: Appears uncomfortable, Behavior is calm, cooperative. Pain: Complains of pain in right lower back Pain does not radiate. Pain currently is 9 out of 10 on a pain scale. Neuro: Mercer Agitation-Sedation Scale (RASS): 0 - Alert and Calm Level of Consciousness is awake, alert, obeys commands, Oriented to person, place, time, situation. Cardiovascular: Capillary refill < 3 seconds. Respiratory: Airway is patent Respiratory effort is even, unlabored, Respiratory pattern is regular, symmetrical. GI: No signs and/or symptoms were reported involving the gastrointestinal system. : Reports pain in right flank(s). EENT: No signs and/or symptoms were reported regarding the EENT system. 23:47 Reassessment: No changes from previously documented assessment. Patient and/or family br2 updated on plan of care and expected duration. Pain level reassessed. Patient is alert, oriented x 3, equal unlabored respirations, skin warm/dry/pink. Vital Signs: 21:02 Resp 17; Temp 98.6; Weight 130.18 kg; Height 5 ft. 1 in. ; Pain 8/10; tm6 21:06 BP 127 / 71; Pulse 69; Pulse Ox 96% on R/A; MAP 87 mmHg; tm6 22:24 BP 130 / 84; Pulse 66; Resp 18 S; Pulse Ox 97% on R/A; Pain 9/10; br2 23:46 BP 145 / 71; Pulse 61; Resp 24; Pulse Ox 98% ; br2 23:58 BP 131 / 72; Pulse 61; Resp 22 S; Temp 97.2(TE); Pulse Ox 98% on R/A; Pain 8/10; br2 21:02 Body Mass Index 54.23 (130.18 kg, 154.94 cm) tm6 21:02 Pain Scale: Adult tm6 22:24 Pain Scale: Adult br2 23:58 Pain Scale: Adult br2 ED Course: 20:22 Patient arrived in ED. im 20:24 Sandra Kirk FNP-C is PHCP. kb 20:24 Tavo Jack MD is Attending Physician. kb 21:04 Triage completed. tm6 21:04 Arm band placed on right wrist. tm6 21:04 Patient has correct armband on for positive identification. Placed in gown. Bed in low br2 position. Call light in reach. Side rails up X 1. Provided Education on: PLAN OF CARE. 21:22 XRAY Chest (1 view) In Process Unspecified. EDMS 21:34 Irasema Larson, RN is Primary Nurse. br2 21:49 US Extremity Venous W Compression Sánchez In Process Unspecified. EDMS 22:41 EKG done, by certified scrub tech. af3 22:42 Basic Metabolic Panel Sent. br2 22:42 CBC with Diff Sent. br2 22:42 LFT's Sent. br2 22:42 NT PRO-BNP Sent. br2 22:42 Troponin HS Sent. br2 22:42 Urinalysis w/ reflexes Sent. br2 22:42 Inserted saline lock: 20 gauge in right hand, using aseptic technique. Blood collected. br2 Flushed with 10 mL NS. 22:42 Missed attempt(s): 20 gauge in right antecubital area. br2 23:58 No provider procedures requiring assistance completed. IV discontinued, intact, br2 bleeding controlled, No redness/swelling at site. Pressure dressing applied. Administered Medications: 23:57 Drug: Ketorolac IVP 15 mg IVP once Route: IVP; Site: right antecubital; br2 23:58 Follow up: Response: Medication administered at discharge. br2 23:57 Drug: Decadron - Dexamethasone IVP 10 mg IVP once Route: IVP; Site: right antecubital; br2 23:58 Follow up: Response: Medication administered at discharge. br2 Medication: 23:58 VIS not applicable for this client. br2 Outcome: 23:45 Discharge ordered by MD. daniels 23:58 Discharged to home ambulatory, br2 23:58 Condition: good 23:58 Discharge instructions given to patient, Instructed on discharge instructions, follow up and referral plans. medication usage, Demonstrated understanding of instructions, follow-up care, medications, Prescriptions given X 2, 23:58 Patient left the ED. br2 Signatures: Dispatcher [employer] EDMS Sandra Kirk, LEACHER-C LEACHER-Bhavya Scales Tawney, RN RN tm6 Irasema Larson RN RN br2 Kiana Hernandez3 Corrections: (The following items were deleted from the chart) 21:02 21:02 Allergies: Aspirin; tm6 tm6 11/15 00:11 00:10 Patient left the ED. br2 br2
[2024-11-14] MEDS ORDERED: dexAMETHasone 10 MG/ML VIAL ONE (23:50)
[2024-11-14] MEDS ORDERED: KETOROLAC 30 MG/ML INJ ONE (23:51)
[2024-11-15 04:34] VITALS: O2SAT 98
[2024-11-15 04:35] VITALS: BP 131/72; TEMP 97.2
--- NOTE | 2024-11-15 11:09 | EKG ---
Test Date: 2024-11-14 Test Time: 22:36:55 Sorting Machine Operator: AF MEASUREMENT RESULTS: Intervals: Rate: 59 MS: 112 QRSD: 94 QT: 438 QTc: 433 [place]: P: 29 MS: 112 QRS: 30 T: 35 INTERPRETIVE STATEMENTS: Sinus bradycardia Otherwise normal ECG Compared to ECG 11/14/2024 22:36:27 Sinus rhythm no longer present Sinus arrhythmia no longer present Short MS interval no longer present Electronically Signed On 11-15-24 11:08:12 DRAFTER (CAD) ELECTRICAL by Reyes [place]
--- NOTE | 2024-11-15 11:09 | EKG ---
Test Date: 2024-11-14 Test Time: 22:36:27 Director Underwriter Sales: AF MEASUREMENT RESULTS: Intervals: Rate: 60 DE: 110 QRSD: 88 QT: 438 QTc: 438 [place]: P: 37 DE: 110 QRS: 37 T: 41 INTERPRETIVE STATEMENTS: Sinus rhythm with sinus arrhythmia with short DE Otherwise normal ECG No previous ECG available for comparison Electronically Signed On 11-15-24 11:08:15 CLAY TRANSPORTER by Reyes Murcia
== END 2024-11-15 00:10 | disposition home or self-care (01) ==
LOC: ER 20:19
DX: M54.50 Low back pain, unspecified (principal); R60.0 Localized edema
CPT/HCPCS: 36415; 71045; 80048; 80076; 81001; 83880; 84484; 85025; 93005; 93970; 96374; 96375; 99284; J1100

== ENCOUNTER 2024-11-18 13:04 | Emergency (ER) | payer SELFPAY ==
--- OUTSIDE RECORDS SUMMARY | 2024-11-18 13:07 | XMS REPORT | Continuity of Care Document ---
Author Name Unknown Address [address] [place] [address] [facility] Address [address] [place] [address] Care Team Providers Care Drafter Landscape Name Role Phone Janette Copeland Primary Care Physician KANDICE DAVALOS Attending Clinician Kandice Rivera Attending Clinician Visit, Gamaliel Nurse Attending Clinician Unava ilnallely Doctor Unassigned, Ida Attending Clinician U navailable Timoteo Israel MD, Wren Attending Clinician + LARISSA SMYTH Attending Clinician Unav ailnallely Ultrasound, Eveliahector Attending Clinician Juan Diego Aburto Attending Clinician [phone] Timoteo Israel MD, Larissa Admitting Clinician + LARISSA SMYTH Admitting Clinician Unav ailable Payers Payer Name Policy Type Policy Number Effective Date Expirati on Date Source [facility] [employer] [employer] AMIE [id number] FPL [id number] 2019 00:00:00 Problems Condition Name Condition Details Condition Category Status Onset Date Resolution Date Last Treatment Date Treating Clinician Comments Source care and examinatio n immediatel y after delivery care and examinatio n immediatel y after delivery Disease Active 2-24 00:00: 00 [facility] 39 weeks gestation of 39 weeks gestation of Disease Active 2-02 00:00: 00 [facility] Herpes simplex type 2 infection affecting , antepartum , third trimester Herpes simplex type 2 infection affecting , antepartum , third trimester Disease Active 2018-1118 00:00: 00 [facility] 29 weeks gestation of 29 weeks gestation of Disease Active 2018-11 00:00: 00 [facility] Round ligament pain Round ligament pain Disease Active 2018-11 00:00: 00 [facility] Flu vaccine need Flu vaccine need Disease Active 2018-1120 00:00: 00 [facility] Pedal edema Pedal edema Disease Active 9-11 00:00: 00 [facility] Obesity in Obesity in Disease Active 8-13 00:00: 00 [facility] Morbid obesity Morbid obesity Disease Active 8-13 00:00: 00 [facility] High risk , antepartum High risk , antepartum Disease Active 8-13 00:00: 00 [facility] Previous delivery affecting , antepartum Previous delivery affecting , antepartum Disease Active 8-13 00:00: 00 [facility] Multiparit y Multiparit y Disease Active 8-13 00:00: 00 [facility] GBS (group B Streptococ cus carrier), +RV culture, 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), +RV culture, currently Disease Active 6 00:00: 00 [facility] Tdap given 04/27/2013 Tdap given 04/27/2013 Disease Active 04-27 00:00: 00 [facility] Allergies, Adverse Reactions, Alerts Allergy Name Allergy Type Status Severity Reaction(s) Onset Date Inactive Date Treating Clinician Comments Source NO KNOWN ALLERGIE S Drug Class Active [facility] Social History Social Habit Start Date Stop Date Quantity Comments Source ASSERTION 2019-04-03 00:00:00 [facility] Sex Assigned At [facility] Alcohol intake 2020-01-10 00:00:00 2020-01-10 00:00:00 [facility] Smoking Status Start Date Stop Date Source Never smoker [facility] Medications Ordered Medication Name Filled Medication Name [...] 12-20 00:00 :00 No Take by mouth. [facility] ceFAZolin in dextrose (iso-os) (ANCEF) 2 gram/100 mL Piggyback 2 g 12-20 04:00: 00 12-20 20:13 :00 No 2000mg 2 g (2,000 mg), IV Piggyback, Q8H ABX, 3 doses, First dose on Fri12/19/19 at 2200, Last dose on Fri12/20/19 at 1400, 100 mL
Reas on for Anti-Infec tive: Surgical Prophylaxi s
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
Duration of therapy: within 24 hours of surgery [facility] vitamin w/FA tablet 12-20 00:00: 00 Yes [id number] 1{tbl} Take 1 tablet by mouth daily. [facility] docusate calcium 240 mg capsule 12-20 00:00: 00 Yes [id number] 240mg Take 1 capsule by mouth once daily as needed for Constipati on. [facility] ferrous sulfate 325 mg (65 mg iron) tablet 12-20 00:00: 00 Yes [id number] 325mg Take 1 tablet by mouth 2 (two) times daily. [facility] ibuprofen 600 mg tablet 12-20 00:00: 00 Yes [id number] 600mg Take 1 tablet by mouth every 6 (six) hours as needed (Pain). Take with food or milk. [facility] HYDROcodone -acetaminop hen 5-325 mg tablet 12-20 00:00: 00 12-28 05:59 :00 No [id number] 1{tbl} Take 1 tablet by mouth every 6 (six) hours as needed (Pain scale above 4) for up to 7 days. Do not exceed 3 grams of acetaminop hen in 24 hours. [facility] rho(D) immune globulin (RHOGAM) syringe 300 mcg 12-19 23:32: 10 Yes 300ug 300 mcg, Intramuscu lar, ONCE, For 1 dose, Conditiona l, Routine [facility] HYDROcodone -acetaminop hen (NORCO 5) 5-325 mg tablet 2 tablet 12-19 23:32: 05 Yes 2{tbl} 2 tablet, Oral, Q6HPRN, Starting 12/19/19 at 1732, Until Discontinu ed, Routine, Pain (scale 7-10), If uncontroll ed by Ibuprofen [facility] HYDROcodone -acetaminop hen (NORCO 5) 5-325 mg tablet 1 tablet 12-19 23:32: 05 Yes 1{tbl} 1 tablet, Oral, Q6HPRN, Starting 12/19/19 at 1732, Until Discontinu ed, Routine, Pain (scale 4-6), If uncontroll ed by Ibuprofen [facility] ibuprofen (IBU) tablet 600 mg 12-19 23:32: 05 Yes 600mg 600 mg, Oral, Q6HPRN, Starting 12/19/19 at 1732, Until Discontinu ed, Routine, Pain (scale 1-3) [facility] ondansetron (ZOFRAN (PF)) injection 4 mg 12-19 23:32: 05 Yes 4mg 4 mg, Slow IV Push, Q8HPRN, Starting 12/19/19 at 1732, Until Discontinu ed, Routine, Nausea and Vomiting (N/V) [facility] simethicone (GAS RELIEF (SIMETHICON E)) chewable tablet 160 mg 12-19 23:32: 05 Yes 160mg 160 mg, Oral, PC+HSPRN, Starting 12/19/19 at 1732, Until Discontinu ed, Routine, Gas [facility] magnesium hydroxide (MILK OF MAGNESIA) 400 mg/5 mL suspension 30 mL 12-19 23:32: 05 Yes 30mL 30 mL, Oral, QDAILYPRN, Starting 12/19/19 at 1732, Until Discontinu ed, Routine, Constipati on [facility] diphenhydrA MINE (BENADRYL) tablet 25 mg 12-19 23:32: 04 Yes 25mg 25 mg, Oral, Q6HPRN, Starting 12/19/19 at 1732, Until Discontinu ed, Routine, Sleep, Itching [facility] bisacodyL (DULCOLAX) suppository 10 mg 12-19 23:32: 04 Yes 10mg 10 mg, Rectal, QDAILYPRN, Starting 12/19/19 at 1732, Until Discontinu ed, Routine, Constipati on [facility] docusate calcium (SURFAK) capsule 240 mg 12-19 23:32: 04 Yes 240mg 240 mg, Oral, QDAILYPRN, Starting 12/19/19 at 1732, Until Discontinu ed, Routine, Constipati on [facility] ketorolac (TORADOL) injection 30 mg 12-19 21:33: 17 12-19 21:44 :00 No 30mg 30 mg, Slow IV Push, PRN, 1 dose, Starting 12/19/19 at 1533, Until 12/19/19 at 1544, Routine, Pain (scale 7-10)
F aculty member approving Restricted medication : NALINI LUBIN [facility] nalbuphine (NUBAIN) injection 5 mg 12-19 21:32: 43 Yes 5mg 5 mg, Intravenou s, PRN, 1 dose, Starting 12/19/19 at 1532, Until Discontinu ed, Routine, Itching [facility] naloxone (NARCAN) injection 0.4 mg 12-19 21:32: 43 12-22 00:14 :19 No .4mg 0.4 mg, Slow IV Push, PRN - SEE INSTRUCTIO NS, Starting 12/19/19 at 1532, Until 12/21/19 at 1814, Routine, Analgesia Recovery [facility] acetaminoph en (TYLENOL) tablet 650 mg 12-19 18:00: 00 12-19 18:07 :00 No 650mg 650 mg, Oral, ONCE, 1 dose, 12/19/19 at 1200, Routine [facility] lactated ringers IV infusion 1,000 mL 12-19 18:00: 00 12-19 23:32 :10 No 1000mL at 125 mL/hr, 1,000 mL, IV Infusion, CONTINUOUS , Starting 12/19/19 at 1200, Until 12/19/19 at 1732, Routine [facility] lactated ringers IV infusion 500 mL 12-19 18:00: 00 12-19 18:06 :00 No 500mL at 999 mL/hr, 500 mL, IV Infusion, ONCE, 1 dose, 12/19/19 at 1200, Routine [facility] ceFAZolin in dextrose (iso-os) (ANCEF) 2 gram/100 mL Piggyback 2 g 12-19 17:50: 35 12-19 19:01 :00 No 2000mg 2 g (2,000 mg), IV Piggyback, O.R. HOLDING ONCE, 1 dose, Starting 12/19/19 at 1150, Until 12/19/19 at 1301, 100 mL
Reas on for Anti-Infec tive: Surgical Prophylaxi s
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
Duration of therapy: within 24 hours of surgery [facility] sodium citrate-cit brayan acid (BICITRA) 500-334 mg/5 mL solution 30 mL 12-19 17:50: 35 12-19 19:02 :00 No 30mL 30 mL, Oral, PRE-PROCED URE ONCE, 1 dose, Starting 12/19/19 at 1150, Until 12/19/19 at 1302, Routine, Surgery/Pr ocedure [facility] valACYclovi r (VALTREX) 500 mg tablet 12-08 00:00: 00 Yes [id number] 500mg Take 1 tablet by mouth daily. [facility] vit/iron fum/folic ac ( 1 + 1 ORAL) 2018-11 01:28: 36 Yes Take by mouth. [facility] vit/iron fum/folic ac ( 1 + 1 ORAL) 06-29 18:25: 05 Yes Take by mouth. [facility] vit 33-iron-fol ic-dha (SELECT-OB + DHA) 29 mg iron-1 mg -250 mg combo pack 06-29 00:00: 00 12-20 00:00 :00 No [id number] 1{packe t} Take 1 Packet by mouth daily. [facility] amoxicillin 500 mg tablet 04-26 00:00: [...] Systolic blood pressure 2020-01-10 17:05:00 130 mm[Hg] [place] [facility] Diastolic blood pressure 2020-01-10 17:05:00 80 mm[Hg] [place] [facility] Heart rate 2020-01-10 17:05:00 79 /min Un[facility] Body temperature 2020-01-10 17:05:00 36.5 Yane [facility] Respiratory rate 2020-01-10 17:05:00 16 /min [facility] Body height 2020-01-10 17:05:00 162.6 cm [facility] Body weight 2020-01-10 17:05:[address] [facility] BMI 2020-01-10 17:05:00 50.72 kg/m2 Univ [facility] Systolic blood pressure 2019-12-27 15:15:00 132 mm[Hg] [facility] Diastolic blood pressure 2019-12-27 15:15:00 80 mm[Hg] [facility] Heart rate 2019-12-27 15:09:00 74 /min Un[facility] Body temperature 2019-12-27 15:09:00 36.78 Yane [facility] Respiratory rate 2019-12-27 15:09:00 16 /min [facility] Body height 2019-12-27 15:09:[address] [facility] Body weight 2019-12-27 15:09:[address] [facility] BMI 2019-12-27 15:09:00 52.04 kg/m2 Univ [facility] Systolic blood pressure 2019-12-24 17:10:00 123 mm[Hg] [facility] Diastolic blood pressure 2019-12-24 17:10:00 78 mm[Hg] [facility] Heart rate 2019-12-24 17:10:00 71 /min Un[facility] Body temperature 2019-12-24 17:10:00 36.72 Yane [facility] Respiratory rate 2019-12-24 17:10:00 16 /min [facility] Body height 2019-12-24 17:10:[address] [facility] Body weight 2019-12-24 17:10:[address] [facility] BMI 2019-12-24 17:10:00 53.58 kg/m2 Univ [facility] Systolic blood pressure 2019-12-21 14:00:00 134 mm[Hg] [facility] Diastolic blood pressure 2019-12-21 14:00:00 68 mm[Hg] [facility] Heart rate 2019-12-21 14:00:00 79 /min [facility] Body temperature 2019-12-21 14:00:00 36.33 Yane [facility] Respiratory rate 2019-12-21 14:00:00 18 /min [facility] Oxygen saturation in Arterial blood by Pulse oximetry 2019-12-21 14:00:00 97 /min [facility] Body height 2019-12-19 17:37:[address] [facility] Body weight 2019-12-19 17:37:[address] [facility] BMI 2019-12-19 17:37:00 55.69 kg/m2 Univ [facility] Systolic blood pressure 2019-12-15 16:07:00 138 mm[Hg] [facility] Diastolic blood pressure 2019-12-15 16:07:00 74 mm[Hg] [facility] Heart rate 2019-12-15 16:07:00 97 /min [facility] Body temperature 2019-12-15 16:07:00 36.11 Yane [facility] Respiratory rate 2019-12-15 16:07:00 16 /min [facility] Body height 2019-12-15 16:07:[address] [facility] Body weight 2019-12-15 16:07:[address] [facility] BMI 2019-12-15 16:07:00 55.97 kg/m2 Univ [facility] Systolic blood pressure 2019-12-08 15:34:00 110 mm[Hg] [facility] Diastolic blood pressure 2019-12-08 15:34:00 62 mm[Hg] [facility] Heart rate 2019-12-08 15:02:00 84 /min [facility] Body temperature 2019-12-08 15:02:00 36.33 Yane [facility] Respiratory rate 2019-12-08 15:02:00 16 /min [facility] Body height 2019-12-08 15:02:00 157.5 cm [facility] Body weight 2019-12-08 15:02:[address] [facility] BMI 2019-12-08 15:02:00 56.88 kg/m2 Univ [facility] Body weight 2019-12-01 16:10:00 139.3 kg [facility] BMI 2019-12-01 16:10:00 56.17 kg/m2 Univ [facility] Systolic blood pressure 2019-12-01 16:10:00 115 mm[Hg] [facility] Diastolic blood pressure 2019-12-01 16:10:00 70 mm[Hg] [facility] Heart rate 2019-12-01 16:10:00 78 /min Un[facility] Body temperature 2019-12-01 16:10:00 36.67 Yane [facility] Respiratory rate 2019-12-01 16:10:00 16 /min [facility] Body height 2019-12-01 16:10:00 157.5 cm [facility] Systolic blood pressure 2019-07-28 15:15:00 113 mm[Hg] [facility] Diastolic blood pressure 2019-07-28 15:15:00 69 mm[Hg] [facility] Heart rate 2019-07-28 15:15:00 79 /min Unive [facility] Body temperature 2019-07-28 15:15:00 37.06 Yane [facility] Respiratory rate 2019-07-28 15:15:00 18 /min [facility] Body height 2019-07-28 15:15:[address] [facility] Body weight 2019-07-28 15:15:00 137.922 kg [facility] BMI 2019-07-28 15:15:00 55.61 kg/m2 Univ [facility] Systolic blood pressure 2019-06-29 18:21:00 126 mm[Hg] [facility] Diastolic blood pressure 2019-06-29 18:21:00 77 mm[Hg] [facility] Heart rate 2019-06-29 18:21:00 96 /min Unive [facility] Body temperature 2019-06-29 18:21:00 36.72 Yane [facility] Respiratory rate 2019-06-29 18:21:00 16 /min [facility] Body height 2019-06-29 18:21:00 157.5 cm [facility] Body weight 2019-06-29 18:21:00 136.589 kg [facility] BMI 2019-06-29 18:21:00 55.08 kg/m2 [facility] Heart Rate 2024-08-27 09:44:00 66.00 /min Joy [...] (LETTERS, USPS DOCUMENTATION) 2019-12-24 06:01:00 Doctor Unassigned, Ida [facility] CBC WITH DIFFERENTIAL 2019-12-20 08:20:00 Tamara Jameson [facility] VENOUS CORD GAS 2019-12-19 19:51:00 Gisell [facility] SECTION 2019-12-19 18:54:00 Mahmood Aravind larios, [facility] TUBAL LIGATION 2019-12-19 18:54:00 Timoteo fernandez, [facility] CBC WITH DIFFERENTIAL 2019-12-19 18:02:00 Tamara Jameson [facility] HEPATITIS B SURFACE ANTIGEN 2019-12-19 18:02:00 Gisell [facility] GALV ONLY - SYPHILIS IGG/IGM 2019-12-19 18:02:00 Gisell [facility] HB ABO GROUPING 2019-12-19 17:55:00 Gisell [facility] RHO (D) IMMUNE GLOBULIN 2019-12-19 17:55:00 Yolanda Jameson [facility] POCT URINALYSIS 2019-12-15 16:08:00 Kandice Davalos [facility] POCT URINALYSIS 2019-12-08 15:13:00 Kandice Davalos [facility] POCT TEST 2019-12-01 16:36:00 Abena Davalos [facility] POCT URINALYSIS W/O SPECIFIC GRAVITY 2019-12-01 16:15:00 Kandice Davalos [facility] IMMTRAC2 CONSENT 2019-09-22 06:01:00 Doctor Lakshmis signed, Ida [facility] POCT URINALYSIS 2019-07-28 15:19:00 Kandice Davalos [facility] POCT TEST 2019-06-29 18:26:00 Abena Davalos [facility] POCT URINALYSIS W/O SPECIFIC GRAVITY 2019-06-29 18:26:00 Kandice Davalos [facility] REPORT OF 2019-06-29 05:01:00 Doctor Heidi sanders, Ida [facility] Encounters Start Date/Time End Date/Time Encounter Type Admission Type Attending [facility] Facility Care Department Encounter ID Source 2024-08-27 09:29:39 2024-08-27 09:29:[address] [facility] [id number] 2024-08-27 00:00:00 2024-08-27 00:00:[address] [facility] [id number] [facility] 2023-09-01 14:48:01 2023-09-01 14:48:[address] [facility] [id number] [place] 2022-08-26 10:14:47 2022-08-26 10:14:[address] 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 [facility] [id number] [id number] [id number] [id number] [facility] 2020-01-10 10:45:00 2020-01-10 10:45:00 Outpatient KANDICE MENDOZA [facility] [id number] [facility] 2019-12-27 08:56:58 2019-12-27 09:11:58 [facility] ME[employer] SAL[employer] STORAGE MANAGER [facility] .[id number] [id number] [id number] [id number] [facility] 2019-12-24 10:44:14 2019-12-24 11:21:11 Nurse Visit Visit, KelliKandice Caruso [facility] ME[employer] SAL[employer] STORAGE MANAGER [facility] [id number] [id number] [id number] [id number] [facility] 2019-12-24 00:00:00 2019-12-24 00:00:00 Orders Only Doctor Unassigned, Ida [facility] [id number] 350.1.13.10 [id number] [id number] [facility] 2019-12-19 11:10:00 2019-12-21 10:28:00 Hospital Encounter Larissa Wilson [facility] [id number] 350.1.13.10 [id number] [id number] [facility] 2019-12-19 11:10:00 2019-12-21 10:28:00 [id number] 2019-12-15 10:02:24 2019-12-15 10:28:30 Routine Visit Kandice Davalos [facility] ME[employer] SAL[employer]ORAGE MANAGER [facility] [id number] 350.1.13.10 [id number] [id number] [facility] 2019-12-08 08:31:15 2019-12-08 09:36:38 Routine Visit Kandice Davalos [facility] ME[employer] SAL[employer]ORAGE MANAGER [facility] & CHILD [facility] [id number] [id number] [id number] [id number] [facility] 2019-12-01 09:52:57 2019-12-01 10:36:43 Routine Visit Kandice Davalos [facility] ME[employer] SAL[employer] STORAGE MANAGER [facility] 1.2.840.114 350.1.13.10 4.2.7.2.686 [id number] [facility] 2019-07-28 10:08:18 2019-07-28 10:47:38 Routine Visit Kandice Davalos [facility] ME[employer] SAL[employer] STORAGE MANAGER [facility] & [facility]ILD [facility] [id number] [id number] [id number] [id number] [facility] 2019-07-01 09:12:43 2019-07-01 09:47:52 Service Observer Visit Ultrasound, Juan Diego Wiley [facility] ME[employer] SAL[employer]ORAGE MANAGER [facility] & CHILD [facility] [id number] [id number] [id number] [id number] [facility] 2019-07-01 00:00:00 2019-07-01 00:00:00 Abstract Kandice Davalos [facility] CH[facility] 1.2.840.114 350.1.13.10 4.2.7.2.686 [id number] [facility] 2019-06-29 13:07:33 2019-06-29 14:12:08 Initial Visit Kandice Davalos [facility] 1.2.840.114 350.1.13.10 4.2.7.2.686 [id number] [facility] 2019-06-29 00:00:00 2019-06-29 00:00:00 Orders Only Doctor Unassigned, Ida [facility] [id number] 350.1.13.10 [id number] [id number] [facility] Results Test Description Test Time Test Comments Results Result Co mments Source COMPREHENSIVE METABOLIC [id number] 04:08:17* Test Item Value Reference Range Interpretation Comme nts GLUCOSE (test code = 2217) 88 MG/DL 70-99 BUN (test code = 2208) 9 MG/DL 6-20 CREATININE (test code = 2214) 0.61 MG/DL 0.60-1.30 eGFR (2020 CKD-EPI) (test code = 24898) 118 ML/MIN/1.73 >60 CALC BUN/CREAT (test code [...] code = 2218) 21 U/L 5-40 HEMOGLOBIN [id number] 02:40:34* Test Item Value Reference Range Interpretation Comme nts HEMOGLOBIN A1c (test code = 97121) 5.7 % 4.2-5.6 H [employer] GUIDELINES FOR HGB A1C: [...] TESTING PERFORMED AT [facility] [address] [place] [address] [employer]OPS ARCHITECT: TULIO ZAVALA M.D. [place] NUMBER [id number] [facility] [place]. [id number] COMPREHENSIVE METABOLIC [id number] 00:00:00* Test Item Value Reference Range Interpretation Comme nts GLUCOSE (test code = 2217) 88 MG/DL BUN (test code = 2208) 9 MG/DL CREATININE (test code = 2214) 0.61 MG/DL eGFR (2020 CKD-EPI) (test code = 69286) 118 ML/MIN/1.73 CALC BUN/CREAT (test code = [...] 21 U/L Charles ReddyTSH + FREE T4 [id number] 00:00:00* Test Item Value Reference Range Interpretation Comme nts TSH, THIRD GENERATION (test code = 2821) 2.300 UIU/ML FREE T4 (THYROXINE) (test co de = 2823) 1.09 NG/DL Charles ReddyHEMOGLOBIN [id number] 00:00:00* Test Item Value Reference Range Interpretation Comme nts HEMOGLOBIN A1c (test code = 27473) 5.7 % [place] Cross [place]/NG, NAAT, [id number] 19:46:07* Test Item Value Reference Range Interpretation Comme nts GONORRHEA, NAAT (test code = 66319) NEGATIVE NEGATIVE IMPORTANT NO CHRISTOPHER: SEE ANNOUNCEMENT AT [email or web address] Note: Assay methodology is nucleic acid amplification by public improvement inspector mediated amplification (TMA) utilizing the Aptima Combo 2 Assay. CHLAMYDIA, NAAT (test code = 67836) NEGATIVE NEGATIVE IMPORTANT NO CHRISTOPHER: SEE ANNOUNCEMENT AT [email or web address] Wind/Lopez heCobasUrineKit Note: Assay methodology is nucleic acid amplification by public improvement inspector mediated amplification (TMA) utilizing the Aptima Combo 2 Assay. VAGINAL PATHOGENS DNA [id number] 15:37:00* Test Item Value Reference Range Interpretation Comme nts CHARLIE SPECIES (test code = 37063) NEGATIVE NEGATIVE G. VAGINALIS (test code = 84015) NEGATIVE NEGATIVE T. VAGINALIS (test code = 56782) NEGATIVE NEGATIVE UNLESS OTHERWISE INDICATED, ALL TESTING PERFORMED [facility] [employer] [address] [place] [address] DEVOPS ARCHITECT: WILLIAM OSBORNE M.D. [place] NUMBER [id number] [facility] [place]. [id number] GC AND CHLAMYDIA, AMPLIFIED, [id number] 00:00:00* Test Item Value Reference Range Interpretation Comme nts GONORRHEA, NAAT (test code = 04749) NEGATIVE CHLAMYDIA, NAAT (test code = 20482) NEGATIVE [facility] AustinVAGINAL PATHOGENS DNA [id number] 00:00:00* Test Item Value Reference Range Interpretation Comme nts CHARLIE SPECIES (test code = ) NEGATIVE G. VAGINALIS (test code = 91558) NEGATIVE T. VAGINALIS (test code = 49706) NEGATIVE Charles RedydGALV ONLY - SYPHILIS [id number] 14:17:00* Test Item Value Reference Range Interpretation Comme nts Syphilis IgG/IgM (test code = 61877-3) Non-reactive Non-reactive KEHINDE (test code = KEHINDE) Non-reactive - No serologic evidence of T. pallidum infection. Cannot exclude incubating or early syphilis. Submit a second specimen in 2-4 weeks if syphilis is clinically suspected. Equivocal - Further testing to follow. Reactive - Further testing to follow. Lab Interpretation (test code = 61343-3) Normal [facility] WITH [id number] 09:06:00* Test Item Value Reference Range Interpretation Comme nts WBC (test code = 6690-2) See_Comment [Automated twiDAQa ge] The system which generated this result [...] 32.4 g/dL 31.6-35.1 RDW-SD (test code = 81028-3) 49.6 fL 39-49.9 RDW-CV (test code = 788-0) 16.0 % 12-15.5 H PLT (test code = 777-3) See_Comment L [Automated messa ge] The system which generated this result transmitted reference range: 166 - 358 10*3/?L. The reference range was not used to interpret this result as normal/abnormal. MPV (test code = 46453-9) 11.2 fL 9.5-12.9 NRBC/100 WBC (test code = 1625035683) See_Comment [Automated Safar[employer]ross ssage] The system which generated this result transmitted reference range: 0.0 - 10.0 /100 WBCs. The reference range was not used to interpret this result as normal/abnormal. NRBC x10^3 (test code = 8029596183) <0.01 See_Comment [Automated messa ge] The system which generated this result transmitted reference range: 10*3/?L. The reference range was not used to interpret this result as normal/abnormal. GRAN MAT (NEUT) % (test code = 770-8) 78.8 % IMM GRAN % (test code = 1812003214) 0.40 % LYMPH % (test code = 736-9) 13.8 % MONO % (test code = 5905-5) 6.4 % EOS % (test code = 713-8) 0.5 % BASO % (test code = 706-2) 0.1 % GRAN MAT x10^3(ANC) (test code = 2739741120) 7.22 10*3/uL 1.88-7.09 H IMM GRAN x10^3 (test code = 4713890900) 0.04 10*3/uL 0-0.06 LYMPH x10^3 (test code = 731-0) 1.27 10*3/uL 1.32-3.29 L MONO x10^3 (test code = 742-7) 0.59 10*3/uL 0.33-0.92 EOS x10^3 (test code = 711-2) 0.05 10*3/uL 0.03-0.39 BASO x10^3 (test code = 704-7) <0.03 0.01-0.07 Lab Interpretation (test code = 33361-3) Abnormal [facility] IMMUNE [id number] 23:43:56* Test Item Value Reference Range Interpretation Comme nts RHIG CANDIDATE? (test code = 5055) No- see comment Patient is not a candidate for RhIg- Patient is Rh Positive.Performed at [facility] Laboratory Services - [facility] Blood [address] [place] [address]Fquo Free: [phone] No. [id number] [facility] HospitalArterial Cord [id number] 20:01:00* Test Item Value Reference Range Interpretation Comme nts BASE EXCESS, CORD (test code = 6390543913) mEq/L AC PH, CORD (BEAKER) (test code = 9873551974) 7.18-7.38 PC02, CORD (test code = 5213039183) See_Comment [Automated messa ge] The system which generated this result transmitted reference range: 32 - 66 mmHg. The reference range was not used to interpret this result as normal/abnormal. PO2, CORD (test code = 5594970223) See_Comment [Automated messa ge] The system which generated this result transmitted reference range: 10 - 30 mmHg. The reference range was not used to interpret this result as normal/abnormal. BICARBONATE, CORD (test code = 4965913094) See_Comment [Automated messa ge] The system which generated this result transmitted reference range: 17 - 27 mEq/L. The reference range was not used to interpret this result as normal/abnormal. [facility] HospitalVenous Cord [id number] 19:58:00* Test Item Value Reference Range Interpretation Comme nts VENOUS BASE EXCESS, CORD (test code = 1417245040) mEq/L VENOUS PH, CORD (test code = 9970151631) 7.25-7.45 L VENOUS PC02, CORD (test code = 4988446264) See_Comment H [Automated me ssage] The system which generated this result transmitted reference range: 27 - 49 mmHg. The reference range was not used to interpret this result as normal/abnormal. VENOUS PO2, CORD (test code = 8982856694) See_Comment L [Automated me ssage] The system which generated this result transmitted reference range: 17 - 41 mmHg. The reference range was not used to interpret this result as normal/abnormal. VENOUS BICARBONATE, CORD (test code = 0317881193) See_Comment [Automa adam message] The system which generated this result transmitted reference range: 12 - 29 mEq/L. The reference range was not used to interpret this result as normal/abnormal. Lab Interpretation (test code = 58138-5) Abnormal [facility] HospitalHepatitis B Surface [id number] 19:56:00 * Test Item Value Reference Range Interpretation Comme nts HBsAg Semi-Quantitative (fadi t code = 5195-3) Negative Negative [facility] HospitalType and Screen - ONCE [id number] 18:44:46* Test Item Value Reference Range Interpretation Comme nts ABO & RH (test code = 20) O POSITIVE Performed at [facility] Laboratory [facility] - [facility] Blood [address] [address]Ilzh Free: [phone] No. [id number] IAT (test code = 1185) Negative Performed at [facility] Laboratory [facility] Blood [address] [address]Hlwi Free: [phone] No. [id number] [facility] HospitalCBC WITH [id number] 18:15:00* Test Item Value Reference Range Interpretation [...] 32.5 g/dL 31.6-35.1 RDW-SD (test code = 39947-9) 47.6 fL 39-49.9 RDW-CV (test code = 788-0) 15.6 % 12-15.5 H PLT (test code = 777-3) See_Comment [Automated message] The system which generated this result transmitted reference range: 166 - 358 10*3/?L. The reference range was not used to interpret this result as normal/abnormal. MPV (test code = 78771-6) 11.6 fL 9.5-12.9 NRBC/100 WBC (test code = 9009155194) See_Comment [Automated message] The system which generated this result transmitted reference range: 0.0 - 10.0 /100 WBCs. The reference range was not used to interpret this result as normal/abnormal. NRBC x10^3 (test code = 5026782443) <0.01 See_Comment [Automated message] The system which generated this result transmitted reference range: 10*3/?L. The reference range was not used to interpret this result as normal/abnormal. GRAN MAT (NEUT) % (test code = 770-8) 83.7 % IMM GRAN % (test code = 7614508003) 0.30 % LYMPH % (test code = 736-9) 11.2 % MONO % (test code = 5905-5) 4.4 % EOS % (test code = 713-8) 0.2 % BASO % (test code = 706-2) 0.2 % GRAN MAT x10^3(ANC) (test code = 8861187061) 10.23 10*3/uL 1.88-7.09 H IMM GRAN x10^3 (test code = 3559653592) 0.04 10*3/uL 0-0.06 LYMPH x10^3 (test code = 731-0) 1.37 10*3/uL 1.32-3.29 MONO x10^3 (test code = 742-7) 0.54 10*3/uL 0.33-0.92 EOS x10^3 (test code = 711-2) 0.03 10*3/uL 0.03-0.39 BASO x10^3 (test code = 704-7) 0.03 10*3/uL 0.01-0.07 Lab Interpretation (test code = 22455-3) Abnormal [facility] URINALYSIS W SPECIFIC [id number] 16:11:00* Test Item Value Reference Range Interpretation [...] 3267) Lab Interpretation (test cod e = 16468-5) Abnormal [facility] URINALYSIS W SPECIFIC [id number] 16:11:00* Test Item Value Reference Range Interpretation [...] 3267) Lab Interpretation (test cod e = 57322-3) Abnormal [facility] URINALYSIS W SPECIFIC [id number] 15:13:00* Test Item Value Reference Range Interpretation [...] POCT U APPEAR (test code = 3267) [facility] [id number] 16:37:00* Test Item Value Reference Range Interpretation Comme nts POCT PREG (test code = 1605) Positive error On board controls acceptable with C Line (test code = 3574) Yes POCT PREG LOT # (test code = 3575) POCT PREG TEST DATE ( test code = 3576) [facility] [id number] 16:37:00* Test Item Value Reference Range Interpretation Comme nts POCT PREG (test code = 1605) Positive error On board controls acceptable with C Line (test code = 3574) Yes POCT PREG LOT # (test code = 3575) POCT PREG TEST DATE ( test code = 3576) [facility] URINALYSIS W/O SPECIFIC [id number] 16:15:00* Test Item Value Reference Range Interpretation [...] ve Lab Interpretation (test cod e = 43062-8) Abnormal [facility] URINALYSIS W/O SPECIFIC [id number] 16:15:00* Test Item Value Reference Range Interpretation [...] ve Lab Interpretation (test cod e = 25535-8) Abnormal [facility] URINALYSIS W SPECIFIC [id number] 15:19:00* Test Item Value Reference Range Interpretation [...] POCT U APPEAR (test code = 3267) [facility] HospitalPOCT [id number] 18:26:00* Test Item Value Reference Range Interpretation Comme nts POCT PREG (test code = 1605) Positive On board controls acceptable with C Line (test code = 3574) Yes POCT PREG LOT # (test code = 3575) POCT PREG TEST DATE ( test code = 3576) [facility] HospitalPOSD URINALYSIS W/O SPECIFIC [id number] 18:26:00* Test Item Value Reference Range Interpretation [...] = 3257) Neg Negative - Negati ve [facility]
[2024-11-18] MEDS ORDERED: ONDANSETRON 4 MG/2 ML VIAL ONE (13:23)
[2024-11-18] MEDS ORDERED: MORPHINE 4 MG/ML SYR ONE (13:24)
--- NOTE | 2024-11-18 13:57 | RAD REPORT ---
EXAM: CT brain without contrast HISTORY: headache, dizziness, cp COMPARISON: None TECHNIQUE: Multiple contiguous axial images were obtained and a CT of the brain without contrast. Sag ittal and coronal reformats were performed. One or more of the following dose reduction techniques were used: Automated exposure control, adjust ment of the mA and/or kV according to patient size, and/or iterative reconstruction. FINDINGS: No evidence of hydrocephalus, intracranial hemorrhage, or extra-axial fluid collection. The brain is normal in morphology. No evidence of midline shift or areas of brain edema. The calvarium is intact. The visualized paranasal sinuses and mastoid air cells are essentially clear . IMPRESSION: No evidence of acute intracranial abnormality.
[2024-11-18 14:00] LABS: Absolute Eosinophils 0.1 K/uL (0-0.5); Absolute Lymphocytes (CBC) 1.6 K/uL (0.7-4.9); Absolute Monocytes 0.5 K/uL (0.1-1.3); Absolute Neutrophil 5.4 K/uL (1.8-8.0); Basophils % 0.5 % (0-1.3); Eosinophils % 1.2 % (0-4.4); Hematocrit 40.5 % (36.0-45.0); Hemoglobin 13.3 g/dL (12.0-15.0); Lymphocytes % 20.7 % (15.3-44.8); MCH 27.1 pg (27.0-35.0); MCHC 32.9 g/dL (32.0-36.0); MCV 82.3 fL (80-100); MPV 8.3 fL (7.6-11.3); Neutrophils % 71.6 % (41.7-73.7); Nucleated Red Blood Cells % 0.1 % (0-0); Platelets 272 thou/uL (152-406); RBC Red Blood Cell Count 4.92 M/uL (3.86-4.86); Red Cell Distribution Width 14.7 % (12.1-15.2)
[2024-11-18 14:03] LABS: PT Prothrombin Time 12.9 SECONDS (9.4-12.5); PTT, Activated Partial Thromb 33.9 SECONDS (24.3-36.9); Protime INR 1.16
--- NOTE | 2024-11-18 14:08 | RAD REPORT ---
EXAMINATION: ONE VIEW CHEST XR CLINICAL INDICATION: CHEST PAIN TECHNIQUE: Frontal chest projection is submitted. Examination is limited by patient positioning and t echnique. COMPARISON: 11/14/2024, 02/19/2019 FINDINGS: Interstitial markings are mildly prominent, nonspecific but can be seen in cases of bronchitis or ast hma. No focal consolidation typical pneumonia. The heart is normal in size. No displaced fractures identified.
[2024-11-18 14:14] LABS: Albumin 3.1 g/dL (3.4-5.0); Albumin/Globulin Ratio 0.7 (1.1-1.8); Anion Gap 9.7 mEq/L (5.0-15.0); Bilirubin Direct 0.2 mg/dL (0-0.2); Bilirubin Indirect, Calculated 0.4 mg/dL (0.2-0.8); Bilirubin Total 0.6 mg/dL (0.2-1.0); Globulin 4.5 g/dL (2.3-3.5); Magnesium 1.9 mg/dL (1.6-2.4); Potassium 3.7 mEq/L (3.5-5.1); Protein, Total 7.6 g/dL (6.4-8.2); Troponin High Sensitivity 18.1 pg/mL (<58.9)
--- NOTE | 2024-11-18 16:36 | ER ---
Nurse's Notes [facility] Name: Dorene Esquivel Age: 39 yrs Sex: Female : 1985 Arrival Date: 11/18/2024 Time: 13:04 Bed 2 Private MD: Diagnosis: Headache;Chest pain, unspecified Presentation: 11/18 13:07 Chief complaint: Patient states: was here Friday for sciatic nerve pain, she was iw prescribed medication but today she started having a bad headache and pain behind her eye and left sided chest pain. Coronavirus screen: At this time, the client does not indicate any symptoms associated with coronavirus-19. Ebola Screen: No symptoms or risks identified at this time. Initial Sepsis Screen: Does the patient meet any 2 criteria? No. Patient's initial sepsis screen is negative. Does the patient have a suspected source of infection? No. Patient's initial sepsis screen is negative. Risk Assessment: Do you want to hurt yourself or someone else? Patient reports no desire to harm self or others. 13:07 Method Of Arrival: Ambulatory iw 13:07 Acuity: ARY 3 iw 13:08 Onset of symptoms was November 18, 2024. iw Triage Assessment: 13:10 General: Appears in no apparent distress. uncomfortable, obese, Behavior is bp cooperative, appropriate for age, crying. Pain: Complains of pain in head. EENT: No deficits noted. Neuro: No deficits noted. Cardiovascular: No deficits noted. Respiratory: No deficits noted. GI: Reports upper abdominal pain. : No signs and/or symptoms were reported regarding the genitourinary system. Derm: No deficits noted. Musculoskeletal: No deficits noted. 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 - Infectious Disease History:: Denies. - Social history:: Smoking status: Patient denies any tobacco usage or history of. Screenin:00 [facility] ED Fall Risk Assessment (Adult) History of falling in the last 3 months, bp including since admission No falls in past 3 months (0 pts) Confusion or Disorientation No (0 pts) Intoxicated or Sedated No (0 pts) Impaired Gait No (0 pts) Mobility Assist Device Used No (0 pt) Altered Elimination No (0 pt) Score/Fall Risk Level 0 - 2 = Low Risk. Abuse screen: Denies threats or abuse. Denies injuries from another. Nutritional screening: No deficits noted. Tuberculosis screening: No symptoms or risk factors identified. Assessment: 13:10 General: Appears in no apparent distress. Behavior is calm, cooperative, appropriate bp for age. 15:00 Reassessment: No changes from previously documented assessment. Patient is alert, bp oriented x 3, equal unlabored respirations, skin warm/dry/pink. GI: Abdomen is obese. 16:34 Reassessment: No changes from previously documented assessment. Patient is alert, bp oriented x 3, equal unlabored respirations, skin warm/dry/pink. Vital Signs: 13:08 BP 161 / 112; Pulse 83; Resp 18; Temp 97.9; Pulse Ox 100% ; Weight 131.54 kg; Height 5 iw ft. 2 in. ; Pain 10/10; 14:16 BP 129 / 79; sb4 15:05 BP 119 / 68; Pulse 56; Resp 16; Pulse Ox 98% ; bp 16:34 BP 118 / 66; Pulse 66; Resp 18; Pulse Ox 100% ; bp 13:08 Body Mass Index 53.04 (131.54 kg, 157.48 cm) iw 13:08 Pain Scale: Adult iw ED Course: 13:06 Patient arrived in ED. im 13:08 Melissa Sherman PA-C is PHCP. sb4 13:08 Germain Lopez MD is Attending Physician. sb4 13:08 Triage completed. iw 13:09 Arm band placed on. iw 13:15 Myriam Rubalcava, RN is Primary Nurse. cm10 13:27 CT Head Brain wo Cont In Process Unspecified. EDMS 13:39 Chest Single View XRAY In Process Unspecified. EDMS 13:42 Inserted saline lock: 22 gauge in right forearm, using aseptic technique. Blood bp collected. Flushed with 10 mL NS. 14:01 EKG done, by ED staff, reviewed by Melissa Sherman PA-C. kb4 15:00 Patient has correct armband on for positive identification. bp 16:55 No provider procedures requiring assistance completed. IV discontinued, intact, bp bleeding controlled, No redness/swelling at site. Pressure dressing applied. Administered Medications: 13:41 Drug: Ondansetron IVP 4 mg IVP once; over 2 minutes Route: IVP; Site: right forearm; bp 16:56 Follow up: Response: No adverse reaction bp 13:42 Drug: morphine IVP or IV 4 mg IVP once over 4 mins Route: IVP; Infused Over: 4 mins; bp Site: right forearm; 16:56 Follow up: Response: No adverse reaction bp Medication: 15:00 VIS not applicable for this client. bp Outcome: 16:35 Discharge ordered by MD. lerma 16:55 Discharged to home ambulatory, with family, bp 16:55 Condition: stable 16:55 Discharge instructions given to patient, family, Instructed on discharge instructions, follow up and referral plans. Demonstrated understanding of instructions, follow-up care, 16:56 Patient left the ED. bp Signatures: Dispatcher [employer] EDMS Aaliyah Piedra RN RN iw Torsten Cooley RN RN bp Brown, Sophia, PA-C PA-C sb4 Bhavya Titus Clarissa RN RN cm10 Theresa Simon kb4
--- NOTE | 2024-11-18 16:36 | EDPHYS ---
Physician Documentation [facility] Name: Dorene Esquivel Age: 39 yrs Sex: Female : 1985 Arrival Date: 11/18/2024 Time: 13:04 Bed 2 Private MD: ASHANTI Physician Germain Lopez HPI: 11/18 13:16 This 39 yrs old Female presents to ER via Ambulatory with complaints of Low sb4 Back Pain, Nausea, Eye Pain, Chest Pain, Headache. 13:20 Patient states that she was here a few days ago for low back pain and lower extremity sb4 edema. She had several test done and was eventually diagnosed with sciatica and discharged with anti-inflammatories and muscle relaxers. She states that her pain returned today so she took a dose of the medicines and after that she started experiencing a migraine, pain behind her right eye, light sensitivity in both eyes, and left-sided chest pain that she describes as a warm sensation. Only medical condition is prediabetes in which she is not taking any medications for. She denies any history of migraines. SAP BASIS: 13:09 LMP 11/18/2024, unknown iw Historical: - Allergies: 13:09 No Known Allergies; iw - PSHx: 13:08 section; tubal ligation; iw - Immunization history:: Adult Immunizations not up to date. - Infectious Disease History:: Denies. - Social history:: Smoking status: Patient denies any tobacco usage or history of. ROS: 13:22 Constitutional: Negative for fever, chills, and weight loss, sb4 13:22 Eyes: Positive for pain, 13:22 Cardiovascular: Positive for chest pain, 13:22 Abdomen/GI: Positive for nausea, 13:22 Back: Positive for pain at rest, 13:22 Neuro: Positive for headache, 13:22 All other systems are negative, Exam: 13:22 Head/Face: Normocephalic, atraumatic. Eyes: Extra-ocular motions intact. Periorbital sb4 areas with no swelling, redness, or edema. ENT: Mucous membranes moist. Cardiovascular: Regular rate and rhythm with a normal S1 and S2. Respiratory: No increased work of breathing, no retractions or nasal flaring. Abdomen/GI: Soft, non-tender, no distension. Skin: Warm, dry with normal turgor. Normal color with no rashes, no lesions, and no evidence of cellulitis. 13:22 Constitutional: The patient appears alert, awake, obese, in obvious pain, uncomfortable, Vital Signs: 13:08 BP 161 / 112; Pulse 83; Resp 18; Temp 97.9; Pulse Ox 100% ; Weight 131.54 kg; Height 5 iw ft. 2 in. ; Pain 10/10; 14:16 BP 129 / 79; sb4 15:05 BP 119 / 68; Pulse 56; Resp 16; Pulse Ox 98% ; bp 16:34 BP 118 / 66; Pulse 66; Resp 18; Pulse Ox 100% ; bp 13:08 Body Mass Index 53.04 (131.54 kg, 157.48 cm) iw 13:08 Pain Scale: Adult iw MDM: 13:10 Medical Screening Exam initiated sb4 16:35 Data reviewed: vital signs, nurses notes, lab test result(s), EKG, radiologic studies, sb4 and as a result, I will discharge patient. Counseling: I had a detailed discussion with the patient and/or guardian regarding the historical points, exam findings, and any diagnostic results supporting the discharge/admit diagnosis, the presence of at least one elevated blood pressure reading (>120/80) during this emergency department visit, lab results, radiology results, the need for outpatient follow up, for definitive care, to return to the emergency department if symptoms worsen or persist or if there are any questions or concerns that arise at home. 11/18 13:16 Order name: Basic Metabolic Panel; Complete Time: 14:14 sb4 11/18 13:16 Order name: CBC with Diff; Complete Time: 14:05 sb4 11/18 13:16 Order name: Hepatic Function; Complete Time: 14:14 sb4 11/18 13:16 Order name: Magnesium; Complete Time: 14:14 sb4 11/18 13:16 Order name: Protime (+inr); Complete Time: 14:05 sb4 11/18 13:16 Order name: Ptt, Activated; Complete Time: 14:05 sb4 11/18 13:16 Order name: Troponin High Sensitivity; Complete Time: 14:14 sb4 11/18 13:16 Order name: CT Head Brain wo Cont; Complete Time: 13:58 sb4 11/18 13:16 Order name: Chest Single View XRAY; Complete Time: 14:09 sb4 11/18 13:16 Order name: Cardiac monitoring; Complete Time: 13:16 sb4 11/18 13:16 Order name: EKG - Nurse/Tech; Complete Time: 13:51 sb4 11/18 13:16 Order name: IV Saline Lock; Complete Time: 13:51 sb4 11/18 13:16 Order name: Labs collected and sent; Complete Time: 13:51 sb4 11/18 13:16 Order name: O2 Per Protocol; Complete Time: 13:16 sb4 11/18 13:16 Order name: O2 Sat Monitoring; Complete Time: 13:16 sb4 EC:51 Rate is 57 beats/min. Rhythm is regular, Sinus bradycardia. NM interval is normal at sb4 116 msec. QRS interval is normal at 94 msec. QT interval is normal at 452 msec. No Q waves. T waves are Normal. No ST changes noted. Clinical impression: Sinus bradycardia. Interpreted by me. Reviewed by me. Administered Medications: 13:41 Drug: Ondansetron IVP 4 mg IVP once; over 2 minutes Route: IVP; Site: right forearm; bp 16:56 Follow up: Response: No adverse reaction bp 13:42 Drug: morphine IVP or IV 4 mg IVP once over 4 mins Route: IVP; Infused Over: 4 mins; bp Site: right forearm; 16:56 Follow up: Response: No adverse reaction bp Disposition Summary: 11/18/24 16:35 Discharge Ordered Notes: Location: Home sb4 Problem: new sb4 Symptoms: have improved sb4 Condition: Stable sb4 Diagnosis - Headache sb4 - Chest pain, unspecified sb4 Followup: sb4 - With: Private Physician - When: 2 - 3 days - Reason: Recheck today's complaints, Re-evaluation by your physician Discharge Instructions: - Discharge Summary Sheet sb4 - Nonspecific Chest Pain, Adult, Rhzb-mi-Qhar sb4 - Edema, Vspi-uw-Tupb sb4 - General Headache Without Cause, Xboy-yc-Cmgt sb4 Forms: - Patient Portal Instructions sb4 - Leadership Thank You Letter sb4 Addendum: 11/23/2024 15:27 Co-signature as Attending Physician, Germain Lopez MD I agree with the assessment and c lew plan of care. Signatures: Dispatcher [employer] EDGermain Epstein MD MD cha Williams, Irene, RN RN Torsten Banegas, RN RN Melissa Lloyd, GAUTAM PA-Shawn sb4 Corrections: (The following items were deleted from the chart) 11/18 13:16 13:16 BASIC METABOLIC PANEL+C.LAB.BRZ ordered. EDMS EDMS 13:16 13:16 CBC+H.LAB.BRZ ordered. EDMS EDMS 13:16 13:16 HEPATIC FUNCTION+C.LAB.BRZ ordered. EDMS EDMS 13:16 13:16 MAGNESIUM+C.LAB.BRZ ordered. EDMS EDMS 13:16 13:16 Test, Urine+UC.LAB.BRZ ordered. EDMS EDMS 13:16 13:16 PROTIME (+INR)+COAG.LAB.BRZ ordered. EDMS EDMS 13:16 13:16 PTT, ACTIVATED+COAG.LAB.BRZ ordered. EDMS EDMS 13:16 13:16 Troponin High Sensitivity+C.LAB.BRZ ordered. EDMS EDMS 13:16 13:16 URINE DRUG SCREEN+UC.LAB.BRZ ordered. EDMS EDMS 13:16 13:16 Head Brain Wo Cont+CT.RAD.BRZ ordered. EDMS EDMS 13:16 13:16 Chest Single View+RAD.RAD.BRZ ordered. EDMS EDMS 13:23 13:20 Patient states that she was here a few days ago for low back pain. She had sb4 several test done and was eventually diagnosed with sciatica and discharged with anti-inflammatories. sb4 15:41 15:41 Troponin High Sensitivity+C.LAB.BRZ ordered. EDMS EDMS
[2024-11-18 19:37] VITALS: TEMP 97.9
[2024-11-18 19:44] VITALS: BP 118/66; O2SAT 100
--- NOTE | 2024-11-19 12:43 | EKG ---
Test Date: 2024-11-18 Test Time: 13:47:42 Director Of Occupational Health: MARY MEASUREMENT RESULTS: Intervals: Rate: 57 RI: 116 QRSD: 94 QT: 452 QTc: 439 [place]: P: 40 RI: 116 QRS: 53 T: 28 INTERPRETIVE STATEMENTS: Sinus bradycardia Otherwise normal ECG Compared to ECG 11/14/2024 22:36:55 No significant changes Electronically Signed On 11-19-24 12:40:41 VELVET CUTTER by Reyes Murcia
== END 2024-11-18 16:56 | disposition home or self-care (01) ==
LOC: ER 13:04
DX: R07.9 Chest pain, unspecified (principal); R51.9 Headache, unspecified
CPT/HCPCS: 36415; 70450; 71045; 80048; 80076; 83735; 84484; 85025; 85610; 85730; 93005; 96374; 96375; 99284; J2405